=== PATIENT | male | born 1955 | race Caucasian/White ===

== ENCOUNTER → 2017-10-17 | Outpatient (CLI) | payer OTHER ==
[~2017-10-17] MED LIST: ADVIN25/60 INH; ALBUAER19 INH; ASPECOTC PO; CARB1CAP10 PO; CELE100C PO; CLC100X PO; CYM/30 PO; DSY50 PO; DULO60CA44 PO; LORA-741 PO; POLY335019 PO; SIMV80TA2 PO; SNQ25 PO; TRAM-10 PO
[2017-10-17 13:19] LABS: HEMATOCRIT 44.8 % (42-52); HEMOGLOBIN 15.4 g/dL (14.0-18.0); MEAN CELL VOLUME 92.9 fL (80-100); MEAN CORPUSCULAR HGB CONC 34.4 g/dl (32-36); MEAN PLATELET VOLUME 8.8 fL (7.4-10.4); PLATELET COUNT 306 K/uL (130-400); RED CELL DISTRIBUTION WIDTH CV 13.2 % (11.5-14.5); RED CELL DISTRIBUTION WIDTH SD 45.1 fL (36.4-46.3)
[2017-10-17 13:57] LABS: ALBUMIN 4.1 gm/dl (3.4-5.0); ALT/SGPT 27 U/L (12-78); BLOOD UREA NITROGEN 15 mg/dl (7-18); CALCIUM 9.1 mg/dl (8.5-10.1); CARBON DIOXIDE 29 mmol/L (21-32); CHOLESTEROL 160 mg/dl (0-200); CREATININE 0.94 mg/dl (0.60-1.40); GLUCOSE 96 mg/dl (70-99); POTASSIUM 4.3 mmol/L (3.5-5.1); SODIUM 135 mmol/L (136-145)
[2017-10-17 14:00] LABS: ALKALINE PHOSPHATASE 93 U/L (45-117); AST/SGOT 20 U/L (15-37); LDL CHOLESTEROL CALCULATED 62 mg/dl; TOTAL PROTEIN 8.1 gm/dl (6.4-8.2)
== END | disposition home or self-care (01) ==
LOC: C.LAB1850 12:33
PROVIDERS: ATTEND Internal Medicine
DX: E78.5 Hyperlipidemia, unspecified (principal); R73.01 Impaired fasting glucose; G40.909 Epilepsy, unspecified, not intractable, without status epilepticus

== ENCOUNTER 2018-09-18 09:46 | Inpatient (IN) ==
[2018-09-18] MEDS ORDERED: SODIUM CHLORIDE 0.9% 1000ML 1,000 ML IV SCH (10:15)
--- NOTE | 2018-09-18 11:05 | CT Scan Report ---
CT SCAN OF THE BRAIN WITHOUT IV CONTRAST CLINICAL HISTORY: Change in mental status. COMPARISON STUDY: No priors. TECHNIQUE: Unenhanced axial CT scan of the brain is performed from the vertex to the skull base. A do se lowering technique was utilized adhering to the principles of ALARA. CT DOSE: 788.63 mGycm FINDINGS: Brain parenchyma: There is encephalomalacia throughout the left MCA territory consistent with a remot e infarct. There is associated ex vacuo dilatation of the left lateral ventricle. Wallerian degenerat ion is noted in the left aspect of the chelsey. There are age-related involutional changes noting mild subcortical and periventricular microangiopathic change. There is no hemorrhage, mass effect, or evid ence of acute territorial ischemia by CT criteria. James-white matter differentiation is preserved. No extra-axial fluid collection is seen. Ventricles, sulci, cisterns: Prominent secondary to involutional change. Intracranial vasculature: There is atherosclerotic calcification of the cavernous carotid and vertebr al arteries. Calvarium: Unremarkable. Sinuses and mastoids: The visualized paranasal sinuses are clear. The mastoid air cells are well pneu matized. Orbits: The bony orbits are grossly intact. IMPRESSION: 1. There is no hemorrhage, mass effect, or evidence of acute territorial ischemia by CT criteria. 2. Remote left MCA territory infarct. Electronically signed by: Nick Barillas M.D. 09/18/2018 11:04 AM
--- NOTE | 2018-09-18 11:15 | XRay Report ---
XR chest 1V portable CLINICAL HISTORY: weakness COMPARISON STUDY: Chest radiograph January 09, 2016. FINDINGS: Old right-sided rib fractures are noted. There is no pneumothorax or pleural effusion. Ther e is no evidence for pulmonary edema. Cardiomediastinal silhouette is stable. No consolidation is samson ntified. IMPRESSION: No acute cardiopulmonary findings. Electronically signed by: Juan Mcdonough M.D. 09/18/2018 11:14 AM
--- NOTE | 2018-09-18 11:16 | XRay Report ---
XR pelvis 1-2V routine CLINICAL HISTORY: ams pain COMPARISON: 09/01/2018 DISCUSSION: Total right hip arthroplasty in good position. Moderate degenerative change left hip. No well-defined acute abnormality. There is no evidence for soft tissue swelling. IMPRESSION: Postoperative and degenerative change. No acute process. The above report was generated using voice recognition software. It may contain grammatical, syntax or spelling errors. Electronically signed by: Shan Yadav M.D. 09/18/2018 11:15 AM
[2018-09-18 11:18] LABS: Basophils # (auto) 0.03 K/uL (0-0.2); Basophils % (auto) 0.2 %; Eosinophils # (auto) 0.14 K/uL (0-0.5); Eosinophils % (auto) 1.1 %; Hematocrit (blood only) 37.6 % (42-52); Hemoglobin 12.6 g/dL (14.0-18.0); Immature Granulocytes # (auto) 0.03 K/uL (0.00-0.02); Immature Granulocytes % (auto) 0.2 %; Lymphocytes # (auto) 1.24 K/uL (1.2-3.4); Lymphocytes % (auto) 10.2 %; Mean Corpuscular Hgb Conc 33.5 g/dL (32-36); Mean Corpuscular Volume 96.4 fL (80-100); Mean Platelet Volume 8.6 fL (7.4-10.4); Monocytes # (auto) 0.95 K/uL (0.11-0.59); Monocytes % (auto) 7.8 %; Neutrophils % (auto) 80.5 %; Platelet Count 356 K/uL (130-400); RDW Coefficient of Variation 12.9 % (11.5-14.5); RDW Standard Deviation 44.9 fL (36.4-46.3); White Blood Count 12.19 K/uL (4.8-10.8)
[2018-09-18 11:27] LABS: INR 1.1 (0.9-1.1); Prothrombin Time 10.8 Seconds (9.0-12.0)
[2018-09-18 11:39] LABS: Alanine Aminotransferase 23 U/L (12-78); Albumin Level 3.1 gm/dl (3.4-5.0); Aspartate Aminotransferase 23 U/L (15-37); BUN Creatinine Ratio 23.2 (10-20); Blood Urea Nitrogen 18 mg/dl (7-18); Calcium 8.8 mg/dl (8.5-10.1); Carbon Dioxide 31 mmol/L (21-32); Chloride 106 mmol/L (98-107); Est GFR (African American) 110.4; Est GFR (Non-African American) 95.2; Glucose 103 mg/dl (70-99); Magnesium 1.8 mg/dl (1.8-2.4); Potassium 4.3 mmol/L (3.5-5.1); Sodium 139 mmol/L (136-145)
[2018-09-18 11:40] LABS: Appearance Urine Clear (Clear); Bilirubin Urine Negative (Negative); Blood Urine Negative (Negative); Color Urine Dark Yellow; Glucose Urine UA Negative (Negative); Ketones Urine Trace (Negative); Leukocyte Esterase Urine Negative (Negative); Nitrite Urine Negative (Negative); Protein Urine Negative (Negative); Specific Gravity Urine 1.024 (1.000-1.030); Urobilinogen Urine Negative (Negative); pH Urine 6.5 (4.5-7.5)
[2018-09-18 11:50] LABS: Albumin Globulin Ratio 0.7 (0.9-2); Alkaline Phosphatase 68 U/L (45-117); Bilirubin,Total 0.4 mg/dl (0.2-1); Globulin 4.3 gm/dl (2.5-4.0); Total Protein 7.4 gm/dl (6.4-8.2); Troponin I 0.021 ng/ml (0-0.045)
[2018-09-18] MEDS ORDERED: OPTIRAY 320 125ml IV PRN (12:09)
--- NOTE | 2018-09-18 13:52 | History & Physical Report ---
Date of Service September 18, 2018 Assessment & Plan (1) Altered mental status: CT as noted, concern for another CVA CBC, PRP WNL TSH WNL Trop neg, EKG WNL CXR neg for PNA UA neg Does have many different types of medications on hand and recent depression, cannot fully r/o intentional overdose Last known well was 11:30p 09/17 Monitor on tele Unable to obtain further imaging due to pt's current state Will hold trazodone, tramodol, baclofen (PRN), ativan Will hold celebrex given it's potential role in CVA Start plavix Neuro c/s PT/OT pending ST pending ADAT if dyphagia screen is WNL (2) History of CVA (cerebrovascular accident): R sided deficits at baseline (3) Depression: continue home meds (4) COPD (chronic obstructive pulmonary disease): continue home meds (5) Anxiety: continue home meds other than PRN (6) Seizure: continue home tegretol dosing to prevent seizures (7) Tobacco use disorder: Nicotine patch PRN (8) DVT prophylaxis: SCDs for now Will need code status revisited once sisters are able to discuss History of Present Illness Primary Care Provider: Narinder Gonzalez MD 63 y/o M who was brought to the ED by his family after being found with AMS at home. 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 This has left him with no use of his R UE and limited R LE use with some aphasia. Pt can understand conversation and participate in conversation, but does have limited vocabulary. He is A&O x3 at baseline. Pt also had an [place] in 1987 as the result of cocaine use. Pt lives alone in an apartment in [place], with a "medical helper" who looks in on him regularly. He used to live with his mother, but she 5-6 years ago. He has two sisters who live in [place] who have tried to convince him to move to [place] for quite some time. They are in good contact with him and visit him here regularly. Pt was recently at [facility] x10 days for ambulation issues related to his R LE. He was d/c'd on 09/10 to home with N. Pt's sister and her had a planned visit for today. She states that she spoke with pt around 11:30p last night via phone regarding this visit and pt seemed to be in his usual state of health. He had no health concerns or other commentary that made her think anything was out of the ordinary. She does note that he mentioned that his depression was worse. Sister and her arrived around 8:30a today to find pt quite "groggy" and not as interactive as he usually would be. He does stay up late and so they thought he was just tired and would "come out of it". He was not moving as he usually would. His speech and communication was not like it usually would be. She states that there were many pills all over his table, but she states that pt does "play with them". "He is a former addict. I think they are just drawn to pills." When his mentation and interactions did not improve, they brought pt to the ED for further evaluation. 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 She states he goes through about 20 cigarettes a day, but only takes a few puffs from each and puts them out. As far as she is aware, pt has no current drug use. She states that all of the stopped after his CVA 22 yrs ago because he could not communicate effectively to obtain drugs or drive to meet dealers. Pt has several ulcerations from postural issues and his R leg brace. She states that his diet is "terrible" and that all he will eat regularly is jelly beans. She states that he has no known swallowing issues after his initial CVA and can eat and drink what he likes. He does wear an upper denture plate, but not a lower. Unable to obtain ROS given pt's current mentation. Sister states that she and their other sister are joint POA. She knows that if pt would not prolonged mechanical life support, feeding tubes, etc. She does think that pt would prefer to be DNR/DNI at baseline, however she would like to discuss with her sister before making a final determination on this status. She does state that if pt does not recover meaningful activity from this event, that he would want to be a DNR/DNI at that time. Sisters are currently in the process of arranging for pt to move to an AL facility in [place]. She states that pt has a lot of depression and really e njoyed his time at [facility] due to the interaction with others, activities, etc. She states that they have tried many times to convince him of this, but he had preferred to live alone after the passing of their mother. After being at [facility], she thinks he realized that he does want a more social environment. CT head was able to be completed in the ED, however pt was unable to cooperate for CTA. Family states that pt will go from periods of moving his L UE and LE and looking around the room with some eye contact to periods of lying still and not appearing to respond to them while they are in the ED. Allergies Allergy/AdvReac Type Severity Reaction Status Date / Time No Known Allergies Allergy Unknown Verified 09/18/18 11:56 Home Medications Home Medications Medication Instructions Recorded Confirmed Type albuterol sulfate [Ventolin HFA] 1 - 2 puff INHALATION Q4 PRN 08/24/18 09/18/18 History aspirin 325 mg PO DAILY 08/24/18 09/18/18 History celecoxib 100 mg PO DAILY 08/24/18 09/18/18 History docusate sodium 100 mg PO BID PRN 08/24/18 09/18/18 History doxepin 25 mg PO HS 08/24/18 09/18/18 History duloxetine 30 mg PO QAM 08/24/18 09/18/18 History duloxetine 60 mg PO QPM 08/24/18 09/18/18 History fluticasone-salmeterol [Advair 1 inh INHALATION BID 08/24/18 09/18/18 History Diskus] linaclotide [Linzess] 145 mg PO QAM 08/24/18 09/18/18 History lorazepam 0.5 - 1 mg PO DAILY PRN 08/24/18 09/18/18 History simvastatin 80 mg PO DAILY 08/24/18 09/18/18 History tramadol 50 mg PO Q6 PRN 08/24/18 09/18/18 History trazodone 50 - 100 mg PO HS PRN 08/24/18 09/18/18 History baclofen 10 mg PO TID PRN 09/18/18 09/18/18 History carbamazepine [Tegretol XR] 100 mg PO BID 09/18/18 09/18/18 History potassium chloride 10 meq PO BID 09/18/18 09/18/18 History Past Med/Surg History Medical History TIA (transient ischemic attack) (Chronic) Carbamazepine toxicity (Acute) Dizziness (Acute) History of CVA (cerebrovascular accident) (Acute) Leg pain (Acute) Medication refill (Acute) Myocarditis (Acute 09/18/11) Acute pain of right knee (Inactive) Dislocation, hip closed (Inactive) Surgical History History of hip replacement Social History Preferred Language: Romansh Communication Ability: Impaired 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 Beliefs That Will Affect Care: None marital status: Single Current Living Situation: Alone Current Living Situation Comment: independent apartment at [address], was in [place], [place] 8 days ago current occupational status: disabled Other Information That Helps Us Care for You: No Feels Safe at Home: Yes Safety Concerns: Feels Safe At This Time Smoking Status: Current every day smoker Hx Alcohol Use: Yes Hx Substance Use: Yes (former heroine and cocaine user) Review of Systems Pertinent positives and negatives reviewed in HPI--all others negative Physical Exam Vital Signs (Past 24 Hours): Last Vital Signs Pulse 68 09/18/18 09:45 Resp 18 09/18/18 09:45 BP 130/65 09/18/18 09:45 Pulse Ox 95 09/18/18 09:45 Constitutional: + cachectic and + frail appearing Eyes: + anicteric sclerae R lid lag, family states likely not new but are not certain Neck: normal visual inspection and trachea midline Respiratory: normal respiratory effort, lungs clear to auscultation Cardiovascular: Rate/Rhythm: regular rate and regular rhythm Gastrointestinal (Abdomen): Inspection/Auscultation: abdomen not distended Percussion/Palpation: abdomen soft; abdomen nontender Musculoskeletal: Head/Neck/Chest: normocephalic and head atraumatic negative for edema, peripheral pulses intact R leg brace intact over most of LE L knee with new abrasion Skin: no rashes, warm and dry Neurologic: No speech while I was in room, did communicate that he wanted head of bed elevated at one point Moving L UE and LE around with apparent good ROM at times, other times lying in bed and staring straight ahead with R lid lag Eyes not making contact Psychiatric: Alerted to person at one point Did take deep breaths when instructed, but no other commands followed Did indicate that he wanted HOB elevated and that it was elevated to a position he wanted Results & Data Diagnostic Findings CT head: 1. There is no hemorrhage, mass effect, or evidence of acute territorial ischemia by CT criteria. 2. Remote left MCA territory infarct. CXR: neg for acute Pelvic XR: neg for acute ECG Rhythm: normal sinus Code Status & VTE Plan Code Status Full code for now. Sister states that she and their other sister are joint POA. She knows that if pt would not prolonged mechanical life support, feeding tubes, etc. She does think that pt would prefer to be DNR/DNI at baseline, however she would like to discuss with her sister before making a final determination on this status. She does state that if pt does not recover meaningful activity from this event, that he would want to be a DNR/DNI at that time. VTE Prophylaxis Plan VTE Prophylaxis will be ordered: Yes (1) Altered mental status Altered mental status type: unspecified Qualified Code(s): R41.82 - Altered mental status, unspecified
[2018-09-18] MEDS ORDERED: PHARMACIST DISCHARGE MED REC CONSULT PRN (14:42)
[2018-09-18] MEDS ORDERED: ONDANSETRON INJ 2 MG/ML 2 ML VIAL IV PRN (14:42)
[2018-09-18] MEDS: SODIUM CHLORIDE 0.9% 1000ML 1,000 ML IV SCH (15:36)
[2018-09-18 15:41] LABS: Estimated Average Glucose 128 mg/dl; Hemoglobin A1C 6.1 % (4.5-5.6)
--- NOTE | 2018-09-18 16:38 | Emergency Department Note ---
Entered by Jaimie Leahy acting as a scribe for León Park DO History of Present Illness General Chief complaint: Altered Mental Status Stated complaint: ams Time Seen by Provider: 09/18/18 09:55 Source: old records reviewed and other (nursing staff) Limitations: altered mental status History of Present Illness Provider complaint: altered mental status Onset (ago): hour(s) (today) Location: head Quality: + other (altered mental status ) The patient is a 63 year old male who presents to the Emergency Room with an altered mental status today. Limited HPI secondary to AMS. Per family, the patient was discharged from [facility] 1 week ago and has been functioning fine. His family states that the patient had a stroke in 1995. Per family, the patient can normally communicate "yes" and "no" and can communicate with body signals. His family states that she talked to the patient at 2330 last night and states that the patient was normal at this time. Per family, the patient takes Tramadol, Baclofen, Celebrex, duloxetine, and Trazadone. Per nursing staff, the patient has a history of a prior stroke. Nursing staff s tates that the patient's BSG was 77. Review of EMR shows that the patient has had 3 visits this month- 1 for a hip dislocation, and 2 for foot pain and falls. Home Medications Home Medications Medication Instructions Recorded Confirmed Type albuterol sulfate [Ventolin HFA] 1 - 2 puff INHALATION Q4 PRN 08/24/18 09/18/18 History aspirin 325 mg PO DAILY 08/24/18 09/18/18 History celecoxib 100 mg PO DAILY 08/24/18 09/18/18 History docusate sodium 100 mg PO BID PRN 08/24/18 09/18/18 History doxepin 25 mg PO HS 08/24/18 09/18/18 History duloxetine 30 mg PO QAM 08/24/18 09/18/18 History duloxetine 60 mg PO QPM 08/24/18 09/18/18 History fluticasone-salmeterol [Advair 1 inh INHALATION BID 08/24/18 09/18/18 History Diskus] linaclotide [Linzess] 145 mg PO QAM 08/24/18 09/18/18 History lorazepam 0.5 - 1 mg PO DAILY PRN 08/24/18 09/18/18 History simvastatin 80 mg PO DAILY 08/24/18 09/18/18 History tramadol 50 mg PO Q6 PRN 08/24/18 09/18/18 History trazodone 50 - 100 mg PO HS PRN 08/24/18 09/18/18 History baclofen 10 mg PO TID PRN 09/18/18 09/18/18 History carbamazepine [Tegretol XR] 100 mg PO BID 09/18/18 09/18/18 History potassium chloride 10 meq PO BID 09/18/18 09/18/18 History Allergies Allergy/AdvReac Type Severity Reaction Status Date / Time No Known Allergies Allergy Unknown Verified 09/18/18 11:56 Past Med/Surg History Medical History TIA (transient ischemic attack) (Chronic) Carbamazepine toxicity (Acute) Dizziness (Acute) History of CVA (cerebrovascular accident) (Acute) Leg pain (Acute) Medication refill (Acute) Myocarditis (Acute 09/18/11) Acute pain of right knee (Inactive) Dislocation, hip closed (Inactive) Surgical History History of hip replacement Social History Preferred Language: Italian Communication Ability: Impaired Medical Research Assistant Required: No Beliefs That Will Affect Care: None marital status: Single Current Living Situation: Alone Current Living Situation Comment: independent apartment at [facility], was in [place], [place] 8 days ago current occupational status: disabled Other Information That Helps Us Care for You: No Feels Safe at Home: Yes Safety Concerns: Feels Safe At This Time Smoking Status: Current every day smoker Hx Alcohol Use: Yes 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 Physical Exam Vital Signs Vital Signs - 24 hr 09/18/18 09:45 09/18/18 09:55 09/18/18 10:00 Temperature Temperature Source Sepsis Recent Fever Within 48 Hours No Sepsis Action Taken by Nursing No Action Required Pulse Rate 68 64 67 Pulse Rate [Left Radial] Pulse Rate from SpO2 Sensor 63 65 Pulse Rhythm [Left Radial] Pulse Strength [Left Radial] Respiratory Rate 18 19 13 Respiratory Effort / Characteristics Non-Labored Respiratory Depth Normal Blood Pressure 130/65 130/65 Blood Pressure [Right Arm] Blood Pressure Mean 86 86 Blood Pressure Mean [Right Arm] Blood Pressure Position [Right Arm] Pulse Oximetry 95 95 97 Oxygen Delivery Method Room Air 09/18/18 10:10 09/18/18 10:20 09/18/18 10:30 Temperature Temperature Source Sepsis Recent Fever Within 48 Hours Sepsis Action Taken by Nursing Pulse Rate 64 65 Pulse Rate [Left Radial] Pulse Rate from SpO2 Sensor 63 66 65 Pulse Rhythm [Left Radial] Pulse Strength [Left Radial] Respiratory Rate 11 L 17 Respiratory Effort / Characteristics Respiratory Depth Blood Pressure Blood Pressure [Right Arm] Blood Pressure Mean Blood Pressure Mean [Right Arm] Blood Pressure Position [Right Arm] Pulse Oximetry 98 97 85 L Oxygen Delivery Method 09/18/18 10:40 09/18/18 10:51 09/18/18 10:53 Temperature Temperature Source Sepsis Recent Fever Within 48 Hours Sepsis Action Taken by Nursing Pulse Rate 62 61 61 Pulse Rate [Left Radial] Pulse Rate from SpO2 Sensor Pulse Rhythm [Left Radial] Pulse Strength [Left Radial] Respiratory Rate 13 13 16 Respiratory Effort / Characteristics Respiratory Depth Blood Pressure 132/87 Blood Pressure [Right Arm] Blood Pressure Mean 102 Blood Pressure Mean [Right Arm] Blood Pressure Position [Right Arm] Pulse Oximetry Oxygen Delivery Method 09/18/18 11:00 09/18/18 11:01 09/18/18 11:10 Temperature Temperature Source Sepsis Recent Fever Within 48 Hours Sepsis Action Taken by Nursing Pulse Rate Pulse Rate [Left Radial] Pulse Rate from SpO2 Sensor 62 62 62 Pulse Rhythm [Left Radial] Pulse Strength [Left Radial] Respiratory Rate Respiratory Effort / Characteristics Respiratory Depth Blood Pressure 153/65 H Blood Pressure [Right Arm] Blood Pressure Mean 94 Blood Pressure Mean [Right Arm] Blood Pressure Position [Right Arm] Pulse Oximetry 97 98 Oxygen Delivery Method 09/18/18 11:20 09/18/18 11:30 09/18/18 11:40 Temperature Temperature Source Sepsis Recent Fever Within 48 Hours Sepsis Action Taken by Nursing Pulse Rate 62 60 Pulse Rate [Left Radial] Pulse Rate from SpO2 Sensor 58 L 61 60 Pulse Rhythm [Left Radial] Pulse Strength [Left Radial] Respiratory Rate 11 L 11 L Respiratory Effort / Characteristics Respiratory Depth Blood Pressure 127/62 Blood Pressure [Right Arm] Blood Pressure Mean 83 Blood Pressure Mean [Right Arm] Blood Pressure Position [Right Arm] Pulse Oximetry 96 98 97 Oxygen Delivery Method 09/18/18 11:50 09/18/18 14:43 Temperature 36.6 C Temperature Source Oral Sepsis Recent Fever Within 48 Hours Sepsis Action Taken by Nursing Pulse Rate 60 Pulse Rate [Left Radial] 89 Pulse Rate from SpO2 Sensor 61 Pulse Rhythm [Left Radial] Regular Pulse Strength [Left Radial] Normal Respiratory Rate 10 L 16 Respiratory Effort / Characteristics Non-Labored Spontaneous Respiratory Depth Normal Blood Pressure Blood Pressure [Right Arm] 150/73 H Blood Pressure Mean Blood Pressure Mean [Right Arm] 98 Blood Pressure Position [Right Arm] Lying Pulse Oximetry 96 99 Oxygen Delivery Method Room Air GENERAL: Sitting up in bed, spontaneously moving upper extremities and left upper extremity, not responding, non-toxic. HEAD: Normpcephalic, atraumatic. EYE EXAM: normal conjunctiva. PERRL and EOM's grossly intact. OROPHARYNX: no exudate, no erythema, lips, buccal mucosa, and tongue normal and mucous membranes are moist NECK: supple, no nuchal rigidity, no adenopathy, non-tender LUNGS: Rhonchi bilaterally. Normal chest wall mechanics HEART: no murmurs, S1 normal and S2 normal ABDOMEN: abdomen soft, non-tender, normo-active bowel, sounds, no masses, no rebound or guarding. PELVIS: Stable compression anteriorly and posteriorly. BACK: Back is symmetrical on inspection and there is no deformity, no midline tenderness, no CVA tenderness. SKIN: Sores on the medial aspect of the right knee and lateral aspect of the right rosenbaum. UPPER EXTREMITIES: upper extremities are grossly normal. LOWER EXTREMITIES: No pitting edema. NEURO EXAM: Awake, nonverbal. Not following commands. Moves the left upper extremity and left lower extremity spontaneously. Right arm moving minimally, appears contracted against chest. Minimal movement to right lower extremity. Course ED COURSE: Vital signs were reviewed and were normal. The patients medical record was reviewed The above diagnostic studies were performed and reviewed. ED treatments and interventions as stated above. 0956: The patient was evaluated in room A12A. A complete history and physical examination was performed. 1111: I updated the patient's family. 1143: I updated the patient's family who verbalized agreement and understanding of the treatment plan. 1222: I discussed the patient's case with Dr. Duane Barrera who will evaluate the patient for further management. Consultations Consultation #1: Dr. Duane Barrera Time: 12:22 Administered Medications Sodium Chloride (Nss 1000ml) 1,000 mls @ 50 mls/hr IV .Q20H EDWARD Stop: 10/18/18 15:04 Last Admin: 09/18/18 15:36 Dose: 50 mls/hr Documented by: [id number] Ioversol (Optiray 320 125ml) 120 ml IV ONCE PRN PRN Reason: Interaction Checking Stop: 09/22/18 12:08 Last Admin: 09/18/18 12:10 Dose: 120 ml Documented by: [id number] Miscellaneous (Order Awaiting Action) 1 ea N/A QS EDWARD Stop: 10/18/18 15:59 Last Admin: 09/18/18 15:33 Dose: Not Given Documented by: [id number] Discontinued Medications Sodium Chloride (Nss 1000ml) 1,000 mls @ 999 mls/hr IV .Q1H1M EDWARD Stop: 09/18/18 11:15 Last Infusion: 09/18/18 13:53 Dose: 0 mls/hr Documented by: [id number] Admin: 09/18/18 12:20 Dose: 999 mls/hr Documented by: [id number] Medical Decision Making Differential Diagnosis Differential diagnoses includes but is not limited to toxic, metabolic, infectious, traumatic, cardiac, neurologic, hematologic, psychiatric and inflammatory etiologies. Medical Records Attestation: I reviewed the patient's medical records. Home Medications Current Medication List: was personally reviewed by me Laboratory Data Attestation: I reviewed the patient's lab results. Result diagrams: 09/18/18 11:06 09/18/18 11:06 Lab Results 09/18/18 09/18/18 09/18/18 Range/Units 11:06 11:06 11:06 WBC 12.19 H (4.8-10.8) K/uL RBC 3.90 L (4.7-6.1) M/uL Hgb 12.6 L (14.0-18.0) g/dL Hct 37.6 L (42-52) % MCV 96.4 (80-100) fL MCH 32.3 (25-34) pg MCHC 33.5 (32-36) g/dL RDW Std Deviation 44.9 (36.4-46.3) fL RDW Coeff of Wesley 12.9 (11.5-14.5) % Plt Count 356 (130-400) K/uL MPV 8.6 (7.4-10.4) fL Immature Gran % (Auto) 0.2 % Neut % (Auto) 80.5 % Lymph % (Auto) 10.2 % Cata[place] % (Auto) 7.8 % Eos % (Auto) 1.1 % Baso % (Auto) 0.2 % Immature Gran # (Auto) 0.03 H (0.00-0.02) K/uL Neut # (Auto) 9.80 H (1.4-6.5) K/uL Lymph # (Auto) 1.24 (1.2-3.4) K/uL Cataño # (Auto) 0.95 H (0.11-0.59) K/uL Eos # (Auto) 0.14 (0-0.5) K/uL Baso # (Auto) 0.03 (0-0.2) K/uL PT 10.8 (9.0-12.0) Seconds INR 1.1 (0.9-1.1) Sodium 139 (136-145) mmol/L Potassium 4.3 (3.5-5.1) mmol/L Chloride 106 (98-107) mmol/L Carbon Dioxide 31 (21-32) mmol/L Anion Gap 2.0 L (3-11) BUN 18 (7-18) mg/dl Creatinine 0.77 (0.6-1.4) mg/dl Est Cr Clr Drug Dosing Not Reportable Est GFR ( Amer) 110.4 Est GFR (Non-Af Amer) 95.2 BUN/Creatinine Ratio 23.2 H (10-20) Glucose 103 H (70-99) mg/dl Estimat Average Glucose mg/dl Hemoglobin A1c (4.5-5.6) % Lactate (0.4-2.0) mmol/L Calcium 8.8 (8.5-10.1) mg/dl Magnesium 1.8 (1.8-2.4) mg/dl Total Bilirubin 0.4 (0.2-1) mg/dl AST 23 (15-37) U/L ALT 23 (12-78) U/L Alkaline Phosphatase 68 (45-117) U/L Troponin I 0.021 (0-0.045) ng/ml Total Protein 7.4 (6.4-8.2) gm/dl Albumin 3.1 L (3.4-5.0) gm/dl Globulin 4.3 H (2.5-4.0) gm/dl Albumin/Globulin Ratio 0.7 L (0.9-2) TSH 0.671 (0.300-4.500) uIu/ml Urine Color Urine Appearance (Clear) Urine pH (4.5-7.5) Ur Specific [place] (1.000-1.030) Urine Protein (Negative) Urine Glucose (UA) (Negative) Urine Ketones (Negative) Urine Blood (Negative) Urine Nitrite (Negative) Urine Bilirubin (Negative) Urine Urobilinogen (Negative) Ur Leukocyte Esterase (Negative) 09/18/18 09/18/18 09/18/18 Range/Units 11:06 11:06 11:25 WBC (4.8-10.8) K/uL RBC (4.7-6.1) M/uL Hgb (14.0-18.0) g/dL Hct (42-52) % MCV (80-100) fL MCH (25-34) pg MCHC (32-36) g/dL RDW Std Deviation (36.4-46.3) fL RDW Coeff of Wesley (11.5-14.5) % Plt Count (130-400) K/uL MPV (7.4-10.4) fL Immature Gran % (Auto) % Neut % (Auto) % Lymph % (Auto) % [place] % (Auto) % Eos % (Auto) % Baso % (Auto) % Immature Gran # (Auto) (0.00-0.02) K/uL Neut # (Auto) (1.4-6.5) K/uL Lymph # (Auto) (1.2-3.4) K/uL [place]ata[place] # (Auto) (0.11-0.59) K/uL Eos # (Auto) (0-0.5) K/uL Baso # (Auto) (0-0.2) K/uL PT (9.0-12.0) Seconds INR (0.9-1.1) Sodium (136-145) mmol/L Potassium (3.5-5.1) mmol/L Chloride (98-107) mmol/L Carbon Dioxide (21-32) mmol/L Anion Gap (3-11) BUN (7-18) mg/dl Creatinine (0.6-1.4) mg/dl Est Cr Clr Drug Dosing Est GFR ( Amer) Est GFR (Non-Af Amer) BUN/Creatinine Ratio (10-20) Glucose (70-99) mg/dl Estimat Average Glucose 128 mg/dl Hemoglobin A1c 6.1 H (4.5-5.6) % Lactate 0.7 (0.4-2.0) mmol/L Calcium (8.5-10.1) mg/dl Magnesium (1.8-2.4) mg/dl Total Bilirubin (0.2-1) mg/dl AST (15-37) U/L ALT (12-78) U/L Alkaline Phosphatase (45-117) U/L Troponin I (0-0.045) ng/ml Total Protein (6.4-8.2) gm/dl Albumin (3.4-5.0) gm/dl Globulin (2.5-4.0) gm/dl Albumin/Globulin Ratio (0.9-2) TSH (0.300-4.500) uIu/ml Urine Color Dark Yellow Urine Appearance Clear (Clear) Urine pH 6.5 (4.5-7.5) Ur Specific [place] 1.024 (1.000-1.030) Urine Protein Negative (Negative) Urine Glucose (UA) Negative (Negative) Urine Ketones Trace H (Negative) Urine Blood Negative (Negative) Urine Nitrite Negative (Negative) Urine Bilirubin Negative (Negative) Urine Urobilinogen Negative (Negative) Ur Leukocyte Esterase Negative (Negative) Imaging Data Radiologist's Impression: Radiology results as stated below per my review and the radiologist's interpretation: XR pelvis 1-2V routine CLINICAL HISTORY: ams pain COMPARISON: 09/01/2018 DISCUSSION: Total right hip arthroplasty in good position. Moderate degenerative change left hip. No well-defined acute abnormality. There is no evidence for soft tissue swelling. IMPRESSION: Postoperative and degenerative change. No acute process. The above report was generated using voice recognition software. It may contain grammatical, syntax or spelling errors. Electronically signed by: Shan Yadav M.D. 09/18/2018 11:[address] SCAN OF THE BRAIN WITHOUT IV CONTRAST CLINICAL HISTORY: Change in mental status. COMPARISON STUDY: No priors. TECHNIQUE: Unenhanced axial CT scan of the brain is performed from the vertex to the skull base. A dose lowering technique was utilized adhering to the principles of ALARA. CT DOSE: 788.63 mGycm FINDINGS: Brain parenchyma: There is encephalomalacia throughout the left MCA territory consistent with a remote infarct. There is associated ex vacuo dilatation of the left lateral ventricle. Wallerian degeneration is noted in the left aspect of the chelsey. There are age-related involutional changes noting mild subcortical and periventricular microangiopathic change. There is no hemorrhage, mass effect, or evidence of acute territorial ischemia by CT criteria. James-white matter differentiation is preserved. No extra-axial fluid collection is seen. Ventricles, sulci, cisterns: Prominent secondary to involutional change. Intracranial vasculature: There is atherosclerotic calcification of the cavernous carotid and vertebral arteries. Calvarium: Unremarkable. Sinuses and mastoids: The visualized paranasal sinuses are clear. The mastoid air cells are well pneumatized. Orbits: The bony orbits are grossly intact. IMPRESSION: 1. There is no hemorrhage, mass effect, or evidence of acute territorial ischemia by CT criteria. 2. Remote left MCA territory infarct. Electronically signed by: Nick Barillas M.D. 09/18/2018 11:04 AM XR chest 1V portable CLINICAL HISTORY: weakness COMPARISON STUDY: Chest radiograph January 09, 2016. FINDINGS: Old right-sided rib fractures are noted. There is no pneumothorax or pleural effusion. There is no evidence for pulmonary edema. Cardiomediastinal silhouette is stable. No consolidation is identified. IMPRESSION: No acute cardiopulmonary findings. Electronically signed by: Juan Mcdonough M.D. 09/18/2018 11:14 AM ECG Data Attestation: I personally reviewed and interpreted this ECG as follows: Indication: altered mental status Rate (beats per minute): 66 Rhythm: sinus rhythm Findings: + other (normal axis); no PVC Blood Pressure Blood Pressure Findings: Normal blood pressure MDM Narrative Patient is a 63-year-old male who presents to the ER for altered mental status brought in by EMS. Family found him at home altered. Last known well was last night around 11 PM. BSG per EMS was 77. Labs were obtained and showed no significant leukocytosis or anemia. INR was unremarkable. BMP along with LFTs and troponin was normal. TSH was unremarkable. UA was negative. Chest x-ray was negative. CT shows an old infarct. Patient's family was updated at bedside. Attempted to obtain a CTA but was unsuccessful as patient was rolling around. Did not feel that sedation would be beneficial at this point. He is a DNR/DNI. This could lose his airway. Family was updated bedside and patient was admitted for further workup. Impression & Plan Altered mental status Discharge Plan Visit Data *Final* Discharge Date/Time: 09/18/18 14:07 Chief Complaint: Altered Mental Status Stated Complaint: ams ED Provider: León Park Discharge Problem: Altered mental status Patient Disposition: Admitted As Inpatient Discharge Instructions Interventions: ED Discharge Assessment Last Done: 09/18/18 14:07 Discharge Problem: Altered mental status Qualifiers: Altered mental status type: unspecified Qualified Code(s): R41.82 - Altered mental status, unspecified The scribe's documentation has been prepared under my direction and personally reviewed by me in its entirety. I confirm that the note above accurately reflects all work, treatment, procedures, and medical decision making performed by me.
[2018-09-18] MEDS: DULOXETINE HCL 60 MG CAP PO SCH (21:04)
[2018-09-18] MEDS: POTASSIUM CHLORIDE 10 MEQ TABCR PO SCH (21:04)
[2018-09-18] MEDS: CARBAMAZEPINE 100 MG TABCR PO SCH (21:05)
[2018-09-18] MEDS: DOXEPIN HCL 25 MG CAPSULE PO SCH (21:05)
[2018-09-18] MEDS: FLUTICASONE/SALMETEROL 250/50 (ADVAIR) 14 PUFF/1 INHALER INH SCH (21:06)
[2018-09-19] MEDS: SODIUM CHLORIDE 0.9% 1000ML 1,000 ML IV SCH (05:39)
[2018-09-19 08:39] LABS: BUN Creatinine Ratio 17.8 (10-20); Calcium 8.5 mg/dl (8.5-10.1); Creatinine Clr Calc Pharmacy 66.9 ml/min; Est GFR (African American) 108.7; Est GFR (Non-African American) 93.7; Magnesium 1.7 mg/dl (1.8-2.4); Potassium 4.3 mmol/L (3.5-5.1)
[2018-09-19 08:53] LABS: Hemoglobin 13.6 g/dL (14.0-18.0); Mean Corpuscular Hgb Conc 33.2 g/dL (32-36); Mean Corpuscular Volume 95.8 fL (80-100); Mean Platelet Volume 9.2 fL (7.4-10.4); Platelet Count 334 K/uL (130-400); RDW Coefficient of Variation 12.9 % (11.5-14.5); RDW Standard Deviation 44.2 fL (36.4-46.3); Red Blood Count 4.28 M/uL (4.7-6.1); White Blood Count 8.35 K/uL (4.8-10.8)
[2018-09-19] MEDS: FLUTICASONE/SALMETEROL 250/50 (ADVAIR) 14 PUFF/1 INHALER INH SCH ×2 (08:57→21:50)
[2018-09-19] MEDS: ASPIRIN 325 MG ECTAB PO SCH (08:57)
[2018-09-19] MEDS: CLOPIDOGREL BISULFATE 75 MG TAB PO SCH (08:58)
[2018-09-19] MEDS: CARBAMAZEPINE 100 MG TABCR PO SCH (08:58)
[2018-09-19] MEDS: SIMVASTATIN 80 MG TAB PO SCH (08:58)
[2018-09-19] MEDS: DULOXETINE HCL 30 MG CAP PO SCH (08:59)
[2018-09-19] MEDS: POTASSIUM CHLORIDE 10 MEQ TABCR PO SCH ×2 (08:59→21:49)
[2018-09-19] MEDS: NICOTINE 7 MG/24 HR TDSY TD PRN (09:08)
--- NOTE | 2018-09-19 09:15 | Neurology Consultation ---
Date of Consultation September 19, 2018 Assessment & Plan (1) Altered mental status: Patient had an episode of altered mental status September 18 of a temporary nature. Today, he is neurologically back at baseline being quite awake and alert and cooperative. I suspect that the most likely etiology of his encephalopathy yesterday was postictal. He describes some episodes of shaking of his right leg prior to coming to the hospital. Another possibility would be that he mixed up his medication and had some temporary medication toxicity resulting in confusion. There is no evidence for obvious metabolic abnormality and he does not seem to have any signs of infection. (2) Seizure: Patient does have a history of seizures secondary to his large left middle cerebral artery stroke. He has been on low-dose carbamazepine for many years and have not had any history of seizures over the time that I saw him on this medication. He most recent carbamazepine level was 4.8 in October of 2017. 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 He has been left with a severe expressive aphasia, spastic right karla paresis, mild right karla sensory deficit, and a seizure disorder. He also has had a significant depression over the years but this has been improved and stable. Recommendations: 1. Increase carbamazepine to 200 milligrams twice daily 2. Check a trough carbamazepine level in 2 weeks. 3. I am concerned about being on both doxepin and duloxetine together as this may result in some serotonin syndrome like side effects potentially. Keep duloxitane the same and consider discontinuing doxepin. 4. We could consider further neurologic evaluation including CT angiography of the head and neck and MRI of the brain but I do not believe this patient has any evidence for a TIA or stroke and he is clearly back to his baseline. 5. I see no need for EEG at this time. 6. Increase activity as able. 7. The patient would likely do better living with his sisters in the [place] area. I think it is wiser from a medical standpoint for him to stop living on his own. 8. I certainly could follow him as an outpatient since I have not seen him since October of 2010. Overall, I spent a total of 90 minutes with this case including review of records, direct evaluation the patient at bedside, discussion of the case with the patient at bedside, clinical staff, and Dr. Heath, including differential diagnosis and treatment options. History of Present Illness Reason for Consultation: Patient is a 63 year old , who i was asked to see at the request of Dr. Guajardo, for neurologic consultation regarding acute altered mental status. Requesting Physician: Dr. Guajardo Attending Physician: Amado Heath MD, PhD, [facility] History of Present Illness Early . He had suffered a massive left middle cerebral artery stroke in July of 1995 secondary to left internal carotid artery occlusion associated with heroin/cocaine use. I followed him regularly over time until October of 2010 when I saw him last. Patient has had a significant right spastic karla paresis (arm greater than leg and face), severe expressive aphasia, seizure disorder which has been well controlled with low-dose carbamazepine, mild karla sensory deficit on the right, and depression. This patient had been a significant drug addict having stopped all drug and alcohol usage with this stroke in 1995. Patient also suffered a significant PA in 1988 from cocaine use. He has been living at home with some assistance and his sisters, will live in [place], oversee his care. Apparently, a sister talk to him approximately 2330 on September 17 and he was at baseline. A sister found him somewhere between 0800 and 0830 at home being groggy and confused. Pills were out on the table and at disorganized fashion. Typically he is good with his pill taking. The patient himself believes that he had 3 separate shaking episodes of at least his right lower extremity that morning. He cannot give any other details because of his aphasia but he may have fallen and landed on his right leg injuring it. He arrived at the emergency room September 18 at 0945 with a pulse of 68 and regular, respiratory rate 18 uncomfortable, blood pressure 130/65, and O2 saturation 95 percent. He had the aphasia but was cooperative. CT scan of the head was unremarkable Chest x-ray was unremarkable CBC showed some anemia. He had an elevated white count at but today it is normal. His troponin was elevated. Hemoglobin A1c was 6.1 chemistry profile was unremarkable otherwise. He has positive hep C and had a negative urinalysis. Currently he has some discomfort with his right knee but otherwise is not in pain or of headaches. He is not dizzy. Allergies Allergy/AdvReac Type Severity Reaction Status Date / Time No Known Allergies Allergy Unknown Verified 09/18/18 11:56 Home Medications Home Medications Medication Instructions Recorded Confirmed Type albuterol sulfate [Ventolin HFA] 1 - 2 puff INHALATION Q4 PRN 08/24/18 09/18/18 History aspirin 325 mg PO DAILY 08/24/18 09/18/18 History celecoxib 100 mg PO DAILY 08/24/18 09/18/18 History docusate sodium 100 mg PO BID PRN 08/24/18 09/18/18 History doxepin 25 mg PO HS 08/24/18 09/18/18 History duloxetine 30 mg PO QAM 08/24/18 09/18/18 History duloxetine 60 mg PO QPM 08/24/18 09/18/18 History fluticasone-salmeterol [Advair 1 inh INHALATION BID 08/24/18 09/18/18 History Diskus] linaclotide [Linzess] 145 mg PO QAM 08/24/18 09/18/18 History lorazepam 0.5 - 1 mg PO DAILY PRN 08/24/18 09/18/18 History simvastatin 80 mg PO DAILY 08/24/18 09/18/18 History tramadol 50 mg PO Q6 PRN 08/24/18 09/18/18 History trazodone 50 - 100 mg PO HS PRN 08/24/18 09/18/18 History baclofen 10 mg PO TID PRN 09/18/18 09/18/18 History carbamazepine [Tegretol XR] 100 mg PO BID 09/18/18 09/18/18 History potassium chloride 10 meq PO BID 09/18/18 09/18/18 History Patient History Medical History TIA (transient ischemic attack) (Chronic) Carbamazepine toxicity (Acute) Dizziness (Acute) History of CVA (cerebrovascular accident) (Acute) Leg pain (Acute) Medication refill (Acute) Myocarditis (Acute 09/18/11) Acute pain of right knee (Inactive) Dislocation, hip closed (Inactive) Surgical History History of hip replacement Social History Preferred Language: Marshallese Communication Ability: Impaired Hair Tinter Required: No Beliefs That Will Affect Care: None marital status: Single Current Living Situation: Alone Current Living Situation Comment: independent apartment at [facility], was in [place] ago current occupational status: disabled Other Information That Helps Us Care for You: No Feels Safe at Home: Yes Safety Concerns: Feels Safe At This Time Smoking Status: Current every day smoker Hx Alcohol Use: Yes Hx Substance Use: Yes (former heroine and cocaine user) Review of Systems Constitutional: no fever, no body aches and no fatigue Eyes: no diplopia, no eye pain and no worsening vision Ear, Nose, Mouth, Throat: no ear pain, no tinnitus, no hearing loss and no dysphagia Respiratory: no cough and no dyspnea Cardiovascular: no chest pain, no dyspnea and no palpitations Gastrointestinal: no abdominal pain, no nausea and no vomiting Genitourinary (Male): no dysuria, no urinary frequency and no urinary incontinence Musculoskeletal: no back pain, no neck pain, no radicular pain, no myalgia, no muscle weakness and no muscle atrophy Integumentary: no rash and no lesions Neurologic: + gait abnormality, + localized weakness, + numbness and + abnormal speech; no falls, no generalized weakness, no tingling, no tremor(s), no abnormal movements, no dizziness, no headache(s), no behavioral changes, no confusion and no memory loss Psychiatric: no depression, no abnormal sleep pattern, no anxiety, no difficulty concentrating, no confusion and no hallucinations Endocrine: no fatigue and no flushing Hematologic / Lymphatic: no easy bleeding and no easy bruising Allergy / Immunological: no urticaria Physical Exam Vital Signs (Past 24 Hours): Last Vital Signs Temp 36.3 C L 09/19/18 08:31 Pulse 65 09/19/18 08:31 Resp 18 09/19/18 08:31 BP 116/49 L 09/19/18 08:31 Pulse Ox 97 09/19/18 08:31 Physical Exam: The patient is right-handed. The patient is awake, alert, and attentive. Speech slightly dysarthric and he has an extreme expressive aphasia with the inability to name objects or colors. He is not using now ounces sentences but uses words like �right, yes, no�. He will follow one-step commands very well. When posed any yes or no fashion he will seemingly answer the questions correctly. He does not seem to be confused and has reasonable memory for his condition both long and short term. Because of his expressive aphasia it is very difficult to get information from him. His mood seems to be quite good without depression or anxiety. The affect seems appropriate. The discs are sharp with positive venous pulsations bilaterally. There are no exudates, hemorrhages, or blood vessel changes seen. Pupils are 4 mm bilaterally and reactive to light. Extraocular eye muscles are intact without nystagmus. Visual acuity and visual locke seem normal grossly to confrontation. There are no deficits to sensation in the face in all 3 distributions of the fifth cranial nerve bilaterally. Corneal reflexes are positive bilaterally. Facial movement seems normal bilaterally but he does have a facial droop and asymmetry on the right. Hearing seems intact grossly to voice and finger rub bilaterally. Palate moves well without asymmetry. There is normal sternocleidomastoid and trapezius (shoulder shrug) strength bilaterally. Tongue is midline with good strength bilaterally. Neck has a full range of motion without discomfort. There are no cervical bruits bilaterally. There are no cranial or ocular bruits. Heart is without murmur. There is a regular rhythm and rate. Cervical, thoracic, and lumbar spine are nontender to palpation. Gait is not tested but stance sitting up in bed is reasonable. With outstretched arms there is no drift on the left. There are no resting, postural, or action tremors bilaterally. There is no ataxia with finger to nose testing on the left. There is good facility in the left hand. No other abnormal involuntary movements are noted. Motor strength is 5/5 diffusely in the left arm and leg both proximally and distally. There is good tone in the left arm and leg and no focal atrophy is noted (although he is thin distally throughout). The right arm and leg have 4- /5 strength proximally and 0/5 strength distally. He has significant contractures in the right upper extremity and spasticity/contractures to a lesser degree in the right lower extremity. He has some atrophy distally in the right upper extremity. Sensory examination is intact to touch and pin in the left arm and leg diffusely. There is some decreased sensation mildly the 5 to these parameters in the right arm leg. Reflexes are 1/4 in the biceps, triceps, brachioradialis, quadriceps, and Achilles tendons on the left and 2/4 in these reflexes on the right. Toes are downgoing with plantar stimulation on the left and upgoing on the right. Peripheral pulses are present and of normal quality distally in all 4 limbs. There is no peripheral edema noted in the limbs.
[2018-09-19 09:19] LABS: Basophils # (auto) 0.05 K/uL (0-0.2); Basophils % (auto) 0.6 %; Eosinophils # (auto) 0.15 K/uL (0-0.5); Eosinophils % (auto) 1.8 %; Immature Granulocytes # (auto) 0.03 K/uL (0.00-0.02); Immature Granulocytes % (auto) 0.4 %; Lymphocytes % (auto) 20.4 %; Monocytes # (auto) 0.75 K/uL (0.11-0.59); Neutrophils # (auto) 5.67 K/uL (1.4-6.5); Neutrophils % (auto) 67.8 %
[2018-09-19 10:04] LABS: Troponin I 0.68 ng/ml (0-0.045)
--- NOTE | 2018-09-19 10:52 | Cardiology Consultation ---
Date of Consultation September 19, 2018 Assessment & Plan (1) Elevated troponin: He has an elevated troponin in a pattern most consistent with demand ischemia. Although we do not know exactly what happened prior to coming into the hospital it is probably due to that. He may have coronary artery disease, that is probably likely, but this is not indicative of an acute infarction and I would not treated as such. (2) Atherosclerosis: He has atherosclerosis, some of his neurologic events and perhaps a myocardial infarction in the past was due to drug abuse but this is in the setting of atherosclerotic disease which has been identified at least on carotid ultrasound. I do not know if he has had a catheterization but I suspect he also has coronary artery disease although I do not think we should look for it. He is being treated with platelet inhibitors and statins, that is appropriate treatment for his known atherosclerosis. I would not pursue further evaluation at this time. (3) Tobacco use disorder: I believe he is still smoking based on his chart, I cannot really tell from his answer. He should stop. History of Present Illness Reason for Consultation: Elevated troponin Attending Physician: Amado Heath MD, PhD, [facility] History of Present Illness This is a 63-year-old gentleman who has cerebrovascular disease (based on ultrasound) and also has had a stroke in the past, although his stroke may have been in part due to drug abuse. He has difficulty communicating in general. He is reported to have had a myocardial infarction in 1987 due to cocaine abuse. He has been having ambulatory difficulty and was in a facility until discharge September 10, on September 18, 2018, his sister visited and noted that he was quite groggy and not very interactive and they noted many pills on the table. He came into the emergency room and was admitted. He was noted to have troponin elevation following admission, it increased from 0.021 on arrival to 1.1 8-1/2 hours later, and then dropped back down to 0.68 about 22 hours after admission. He is difficult to communicate with although he is awake and alert, he has a clear expressive a fascia and his right side has limited motion. He says no when asked about chest discomfort, but I do not know if he is answering correctly. Allergies Allergy/AdvReac Type Severity Reaction Status Date / Time No Known Allergies Allergy Unknown Verified 09/18/18 11:56 Home Medications Home Medications Medication Instructions Recorded Confirmed Type albuterol sulfate [Ventolin HFA] 1 - 2 puff INHALATION Q4 PRN 08/24/18 09/18/18 History aspirin 325 mg PO DAILY 08/24/18 09/18/18 History celecoxib 100 mg PO DAILY 08/24/18 09/18/18 History docusate sodium 100 mg PO BID PRN 08/24/18 09/18/18 History doxepin 25 mg PO HS 08/24/18 09/18/18 History duloxetine 30 mg PO QAM 08/24/18 09/18/18 History duloxetine 60 mg PO QPM 08/24/18 09/18/18 History fluticasone-salmeterol [Advair 1 inh INHALATION BID 08/24/18 09/18/18 History Diskus] linaclotide [Linzess] 145 mg PO QAM 08/24/18 09/18/18 History lorazepam 0.5 - 1 mg PO DAILY PRN 08/24/18 09/18/18 History simvastatin 80 mg PO DAILY 08/24/18 09/18/18 History tramadol 50 mg PO Q6 PRN 08/24/18 09/18/18 History trazodone 50 - 100 mg PO HS PRN 08/24/18 09/18/18 History baclofen 10 mg PO TID PRN 09/18/18 09/18/18 History carbamazepine [Tegretol XR] 100 mg PO BID 09/18/18 09/18/18 History potassium chloride 10 meq PO BID 09/18/18 09/18/18 History Patient History Medical History TIA (transient ischemic attack) (Chronic) Carbamazepine toxicity (Acute) Dizziness (Acute) History of CVA (cerebrovascular accident) (Acute) Leg pain (Acute) Medication refill (Acute) Myocarditis (Acute 09/18/11) Acute pain of right knee (Inactive) Dislocation, hip closed (Inactive) Surgical History History of hip replacement Family History Father TIA (transient ischemic attack) Mother , s/p cdiff and PNA infections Ischemic cardiomyopathy Other Family history non-contributory Social History Preferred Language: Omani Communication Ability: Impaired Petrographer Required: No Beliefs That Will Affect Care: None marital status: Single Current Living Situation: Alone Current Living Situation Comment: independent apartment at [facility], was in [place] ago current occupational status: disabled Other Information That Helps Us Care for You: No Feels Safe at Home: Yes Safety Concerns: Feels Safe At This Time Smoking Status: Current every day smoker Hx Alcohol Use: Yes Hx Substance Use: Yes (former heroine and cocaine user) Review of Systems Although he is awake and alert his review of systems is not possible due to his expressive a fascia Physical Exam Vital Signs (Past 24 Hours): Last Vital Signs Temp 36.3 C L 09/19/18 08:31 Pulse 65 09/19/18 08:31 Resp 18 09/19/18 08:31 BP 116/49 L 09/19/18 08:31 Pulse Ox 97 09/19/18 08:31 Physical Exam: Constitutional: Alert, cooperative and in no distress. Expressive a fascia. HEENT: Unremarkable Neck: No jugular venous distention, carotid pulses are normal and equal bilaterally without bruits. Pulmonary: Clear to auscultation bilaterally. Cardiac: Regular rhythm with a soft systolic murmur, no gallop or rub. Abdomen: Soft, nontender with normal bowel sounds. Extremities: No edema. Distal pulses intact. Neurologic: Right arm and leg weakness and/or paralysis. Gait was not tested. Skin: No rash, ecchymoses or petechiae. Results & Data Diagnostic Findings His electrocardiogram on September 18, 2018 at 10:30 AM shows sinus rhythm at 66 bpm and it is essentially normal. He had a carotid ultrasound performed April 21, 2015 where he had occlusion of the right internal carotid artery, occlusion of the left internal carotid artery with the external carotid arteries patent. An echocardiogram done September 11, 2011 shows low normal overall left ventricular function with mild aortic sclerosis.
[2018-09-19] MEDS: ACETAMINOPHEN 325 MG TAB PO PRN (12:25)
--- NOTE | 2018-09-19 16:11 | Hospitalist Progress Note ---
Date of Service September 19, 2018 Assessment & Plan (1) Altered mental status: (2) History of CVA (cerebrovascular accident): (3) Depression: (4) COPD (chronic obstructive pulmonary disease): (5) Anxiety: (6) Seizure: (7) Tobacco use disorder: (8) DVT prophylaxis: 63 y/o M was admitted on September 18, 2018 after being found with AMS at home likely secondary to postictal symptom seizure or TIA, Per pt's sister, pt has a hx of CVA 22 yrs ago as the result of heroin use. Altered mental status, origin unknown, likely secondary to postictal symptom seizure or TIA, History of CVA, with R sided deficits at baseline History of seizure medication Neurology see patient, CT was unremarkable,, recs Increase carbamazepine to 200 milligrams twice daily, Check a trough carbamazepine level in 2 weeks. neuro concerned about being on both doxepin and duloxetine together as this may result in some serotonin syndrome like side effects potentially. Keep duloxitane the same and consider discontinuing doxepin as outpatient in a follow-up visit per neurologist, may consider further neurologic evaluation including CT angiography of the head and neck and MRI of the brain. Patient will need to follow-up with his neurologist after discharge Resume home medication PT/OT pending Mild accelerated hypertension blood pressure at 170/67, will follow up Elevated troponin, which has been trans-down, etiology unknown, possible impending ischemia Tobacco abuse disorder, offered nicotine patch, DVT prophylaxis will be on SCD Social issues, patient if along with a caregiver at home, 2 daughter was shared power of criminal defense attorney and if in [place], family is talking to renal case manager for possible skilled nursing, Will follow up with PT OT and supportive employment case manager input Full code, Subjective Awake alert orientated, conversational, follow up commands, mild dysphasia and right side paralyzed from CVA from previous stroke Otherwise unremarkable, Denies fever chills, denied no "tingling and numbness, denies noted speech facial droop, Denies cough sputum shortness of breath, denies dysuria urgency and frequency Physical Exam Vital Signs (Past 24 Hours): Last Vital Signs Temp 36.7 C 09/19/18 12:16 Pulse 66 09/19/18 12:16 Resp 20 09/19/18 12:16 BP 170/67 H 09/19/18 12:16 Pulse Ox 99 09/19/18 12:16 Physical Exam: Constitutional: Alert, cooperative and in no distress. Expressive aphascia. HEENT: Unremarkable Neck: No jugular venous distention, carotid pulses are normal and equal bilaterally without bruits. Pulmonary: Decreased auscultation bilaterally. No wheezing rhonchi or crackles Cardiac: Regular rhythm with a soft systolic murmur, no gallop or rub. Abdomen: Soft, nontender with normal bowel sounds. Extremities: No edema. Distal pulses intact. Neurologic: Right arm and leg weakness and/or paralysis. Skin: No rash, ecchymoses or petechiae. Results & Data Laboratory Results Laboratory Results - last 24 hr 09/18/18 09/18/18 09/18/18 10:58 11:11 15:37 WBC RBC Hgb Hct MCV MCH MCHC RDW Std Deviation RDW Coeff of Wesley Plt Count MPV Immature Gran % (Auto) Neut % (Auto) Lymph % (Auto) Fergus % (Auto) Eos % (Auto) Baso % (Auto) Immature Gran # (Auto) Neut # (Auto) Lymph # (Auto) Fergus # (Auto) Eos # (Auto) Baso # (Auto) Sodium Potassium Chloride Carbon Dioxide Anion Gap BUN Creatinine Est Cr Clr Drug Dosing Est GFR ( Amer) Est GFR (Non-Af Amer) BUN/Creatinine Ratio Glucose POC Glucose 97 Calcium Phosphorus Magnesium Troponin I 0.492 H* Triglycerides Cholesterol LDL Cholesterol, Calc VLDL Cholesterol, Calc HDL Cholesterol Cholesterol/HDL Ratio Hepatitis C Ab Screen Pos H 09/18/18 09/19/18 09/19/18 20:36 07:48 07:48 WBC 8.35 RBC 4.28 L Hgb 13.6 L Hct 41.0 L MCV 95.8 MCH 31.8 MCHC 33.2 RDW Std Deviation 44.2 RDW Coeff of Wesley 12.9 Plt Count 334 MPV 9.2 Immature Gran % (Auto) 0.4 Neut % (Auto) 67.8 Lymph % (Auto) 20.4 Fergus % (Auto) 9.0 Eos % (Auto) 1.8 Baso % (Auto) 0.6 Immature Gran # (Auto) 0.03 H Neut # (Auto) 5.67 Lymph # (Auto) 1.70 Fergus # (Auto) 0.75 H Eos # (Auto) 0.15 Baso # (Auto) 0.05 Sodium 141 Potassium 4.3 Chloride 109 H Carbon Dioxide 24 Anion Gap 8.0 BUN 14 Creatinine 0.80 Est Cr Clr Drug Dosing 66.9 Est GFR ( Amer) 108.7 Est GFR (Non-Af Amer) 93.7 BUN/Creatinine Ratio 17.8 Glucose 87 POC Glucose Calcium 8.5 Phosphorus 3.0 Magnesium 1.7 L Troponin I 1.120 H* Triglycerides Cancelled Cholesterol Cancelled LDL Cholesterol, Calc Cancelled VLDL Cholesterol, Calc Cancelled HDL Cholesterol Cancelled Cholesterol/HDL Ratio Cancelled Hepatitis C Ab Screen 09/19/18 09:23 WBC RBC Hgb Hct MCV MCH MCHC RDW Std Deviation RDW Coeff of Wesley Plt Count MPV Immature Gran % (Auto) Neut % (Auto) Lymph % (Auto) Fergus % (Auto) Eos % (Auto) Baso % (Auto) Immature Gran # (Auto) Neut # (Auto) Lymph # (Auto) Fergus # (Auto) Eos # (Auto) Baso # (Auto) Sodium Potassium Chloride Carbon Dioxide Anion Gap BUN Creatinine Est Cr Clr Drug Dosing Est GFR ( Amer) Est GFR (Non-Af Amer) BUN/Creatinine Ratio Glucose POC Glucose Calcium Phosphorus Magnesium Troponin I 0.680 H* Triglycerides 126 Cholesterol 157 LDL Cholesterol, Calc 64 VLDL Cholesterol, Calc 25 HDL Cholesterol 68 Cholesterol/HDL Ratio 2 Hepatitis C Ab Screen (1) Altered mental status Altered mental status type: unspecified Qualified Code(s): R41.82 - Altered mental status, unspecified
[2018-09-19] MEDS: DULOXETINE HCL 60 MG CAP PO SCH (21:49)
[2018-09-19] MEDS: CARBAMAZEPINE 200 MG TABCR PO SCH (21:50)
[2018-09-19] MEDS: DOXEPIN HCL 25 MG CAPSULE PO SCH (21:50)
[2018-09-20] MEDS: FLUTICASONE/SALMETEROL 250/50 (ADVAIR) 14 PUFF/1 INHALER INH SCH ×2 (08:35→20:29)
[2018-09-20] MEDS: SIMVASTATIN 80 MG TAB PO SCH (08:36)
[2018-09-20] MEDS: CLOPIDOGREL BISULFATE 75 MG TAB PO SCH (08:36)
[2018-09-20] MEDS: DULOXETINE HCL 30 MG CAP PO SCH (08:36)
[2018-09-20] MEDS: CARBAMAZEPINE 200 MG TABCR PO SCH ×2 (08:37→20:29)
[2018-09-20] MEDS: ASPIRIN 325 MG ECTAB PO SCH (08:37)
[2018-09-20] MEDS: POTASSIUM CHLORIDE 10 MEQ TABCR PO SCH ×2 (08:37→20:28)
--- NOTE | 2018-09-20 10:37 | Neurology Progress Note ---
Date of Service September 20, 2018 Assessment & Plan (1) Altered mental status: Patient had an episode of altered mental status September 18 of a temporary nature. Over the last 24 hours, he is neurologically back at baseline, being quite awake and alert and cooperative. I suspect that the most likely etiology of his encephalopathy yesterday was postictal. He describes some episodes of shaking of his right leg prior to coming to the hospital. Another possibility would be that he mixed up his medication and had some temporary medication toxicity resulting in confusion. There is no evidence for obvious metabolic abnormality otherwise and he does not seem to have any signs of infection. (2) Seizure: Patient does have a history of seizures secondary to his large left middle cerebral artery stroke. He has been on low-dose carbamazepine for many years and have not had any history of seizures over the time that I saw him on this medication. He most recent carbamazepine level was 4.8 in October of 2017. 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 He has been left with a severe expressive aphasia, spastic right karla paresis, mild right karla sensory deficit, and a seizure disorder. He also has had a significant depression over the years but this has been improved and stable. Recommendations: 1. Continue carbamazepine to 200 milligrams twice daily 2. Check a trough carbamazepine level in 1-2 weeks. 3. Continue duloxitine the same and discontinue doxepin -there is no need to be on both and there is a risk of serotonin syndrome. 4. I see no need for additional neurologic testing at this time 5. I see no need for EEG at this time. 6. Increase activity as able. 7. The patient would likely do better living with his sisters in the [facility]. They will be taking him there directly from this hospitalization. 8. Discontinue Plavix and continue 81 milligram aspirin tablet daily. Overall, I spent a total of 35 minutes with this case including review of records, direct evaluation the patient at bedside, discussion of the case with the patient at bedside, his sister at bedside, clinical staff, and Dr. Heath, including differential diagnosis and treatment options. Subjective The patient feels good with no pain or headache. He has not had any additional seizures or abnormal movements since in the hospital. He feels back to baseline. Blood pressure is 133/64. I notice he is on both aspirin and Plavix. Carbamazepine is 200 milligrams twice a day. Patient's sister, Naima wang from [place] is present in the room today. Physical Exam Vital Signs (Past 24 Hours): Last Vital Signs Temp 36.8 C 09/20/18 07:43 Pulse 63 09/20/18 07:43 Resp 18 09/20/18 07:43 BP 133/64 09/20/18 07:43 Pulse Ox 98 09/20/18 07:43 Physical Exam: He is awake and alert. Speech is with severe expressive aphasia but at baseline. The patient is pleasant and cooperative and follows commands well. His memory is at baseline. Extraocular eye muscles are intact without nystagmus. He has spastic right karla paresis as before and the left side is strong. He has no abnormal involuntary movements.
--- NOTE | 2018-09-20 15:31 | Hospitalist Progress Note ---
Date of Service September 20, 2018 Assessment & Plan (1) Altered mental status: (2) History of CVA (cerebrovascular accident): (3) Depression: (4) COPD (chronic obstructive pulmonary disease): (5) Anxiety: (6) Seizure: (7) Tobacco use disorder: (8) DVT prophylaxis: 63 y/o M was admitted on September 18, 2018 after being found with AMS at home likely secondary to postictal symptom seizure or TIA, Per pt's sister, pt has a hx of CVA 22 yrs ago as the result of heroin use. hx was at [facility] x10 days for ambulation issues related to his right frequent dislocation of the hip Altered mental status upon admission, origin unknown, continue getting more sharp and clear in speaking likely secondary to postictal symptom seizure, less likely TIA, History of CVA, with R sided deficits at baseline History of seizure medication Neurologist saw patient, CT was unremarkable,, recs Increase carbamazepine to 200 milligrams twice daily, Check a trough carbamazepine level in 2 weeks. neuro concerned about being on both doxepin and duloxetine together as this may result in some serotonin syndrome like side effects potentially. DC doxepin , Patient will need to follow-up with his neurologist after discharge Resume home medication PT/OT pending Mild accelerated hypertension blood pressure at 170/67, which has been better Elevated troponin, which has been trans-down, etiology unknown, possible impending ischemia stool incontinence x1, sister is concerned, I feel this is just 1 episode of incidental, recommend continue to watch Tobacco abuse disorder, offered nicotine patch, DVT prophylaxis will be on SCD Social issues, patient if along with a caregiver at home, 2 daughter was shared power of securities attorney and if in [place], family is talking to caser up for possible assisted, I agree with this because patient was able to live independently by himself at home, he seems to need a lot of help for now, I would strongly recommend to discharge to assisted to continue rehab Full code, DVT prophylaxis, possible discharge home tomorrow Subjective Significantly improved, more alert, and more sharp in conversation, more fluent in talking awake alert orientated, conversational, follow up commands, right side paralyzed from CVA from previous stroke Sister reported has one-time stool incontinence Otherwise unremarkable, Denies fever chills, denied no "tingling and numbness, denies noted speech facial droop, Denies cough sputum shortness of breath, denies dysuria urgency and frequency Physical Exam Vital Signs (Past 24 Hours): Last Vital Signs Temp 36.9 C 09/20/18 15:14 Pulse 72 09/20/18 15:14 Resp 19 09/20/18 15:14 BP 151/70 H 09/20/18 15:14 Pulse Ox 100 09/20/18 15:14 Physical Exam: Constitutional: Alert, cooperative and in no distress. HEENT: Unremarkable Neck: No jugular venous distention, carotid pulses are normal and equal bilaterally without bruits. Pulmonary: Decreased auscultation bilaterally. No wheezing rhonchi or crackles Cardiac: Regular rhythm with a soft systolic murmur, no gallop or rub. Abdomen: Soft, nontender with normal bowel sounds. Extremities: No edema. Distal pulses intact. Neurologic: Right arm and leg weakness and/or paralysis. Skin: No rash, ecchymoses or petechiae. (1) Altered mental status Altered mental status type: unspecified Qualified Code(s): R41.82 - Altered mental status, unspecified
[2018-09-20] MEDS: ACETAMINOPHEN 325 MG TAB PO PRN (20:29)
[2018-09-20] MEDS: DULOXETINE HCL 60 MG CAP PO SCH (20:29)
[2018-09-21] MEDS: FLUTICASONE/SALMETEROL 250/50 (ADVAIR) 14 PUFF/1 INHALER INH SCH ×2 (08:45→20:09)
[2018-09-21] MEDS: SIMVASTATIN 80 MG TAB PO SCH (08:46)
[2018-09-21] MEDS: DULOXETINE HCL 30 MG CAP PO SCH (08:46)
[2018-09-21] MEDS: ASPIRIN 325 MG ECTAB PO SCH (08:47)
[2018-09-21] MEDS: POTASSIUM CHLORIDE 10 MEQ TABCR PO SCH ×2 (08:47→20:59)
[2018-09-21] MEDS: CARBAMAZEPINE 200 MG TABCR PO SCH ×2 (08:47→21:00)
[2018-09-21] MEDS: NICOTINE 7 MG/24 HR TDSY TD PRN (09:16)
[2018-09-21] MEDS ORDERED: BACLOFEN 10 MG TAB PO PRN (15:01)
--- NOTE | 2018-09-21 15:11 | Hospitalist Progress Note ---
Date of Service September 21, 2018 Assessment & Plan (1) Altered mental status: (2) History of CVA (cerebrovascular accident): (3) Depression: (4) COPD (chronic obstructive pulmonary disease): (5) Anxiety: (6) Seizure: (7) Tobacco use disorder: (8) DVT prophylaxis: 63 y/o M was admitted on September 18, 2018 after being found with AMS at home likely secondary to postictal seizure or TIA, Per pt's sister, pt has a hx of CVA 22 yrs ago as the result of heroin use. 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 neuro concerned about being on both doxepin and duloxetine together as this may result in some serotonin syndrome like side effects potentially. DC doxepin , Patient will need to follow-up with his neurologist after discharge Mild accelerated hypertension blood pressure at 170/67, which has been better Elevated troponin, which has been trans-down, etiology unknown, possible demanding ischemia, no ACS Tobacco abuse disorder, offered nicotine patch, DVT prophylaxis will be on SCD Social issues, patient lives alone with a caregiver at home, 2 sisters was shared power of collections attorney and if in [place], family is talking to renal case manager for possible [facility], I agree with this because patient was able to live independently by himself at home, he seems needimg a lot of help for now, I would strongly recommend to discharge to [facility] to continue rehab Full code, DVT prophylaxis, medically ready to discharge, renal case manager for discharge plan Subjective cont improving more alert, and more sharp in conversation, more fluent in talking , strength is improving to he up and walk with cane by himself with some assistance awake alert orientated, conversational, follow up commands, right side paralyzed from previous stroke no stool incontinence Otherwise unremarkable, Denies fever chills, denied "tingling and numbness, denies noted speech facial droop, Denies cough sputum shortness of breath, denies dysuria urgency and frequency Denies dysuria urgency and frequency Physical Exam Vital Signs (Past 24 Hours): Last Vital Signs Temp 36.9 C 09/21/18 11:40 Pulse 77 09/21/18 11:40 Resp 18 09/21/18 11:40 BP 114/56 L 09/21/18 11:40 Pulse Ox 98 09/21/18 11:40 Physical Exam: Constitutional: Alert, cooperative and in no distress. Expressive aphascia. HEENT: Unremarkable Neck: No jugular venous distention, carotid pulses are normal and equal bilaterally without bruits. Pulmonary: Decreased auscultation bilaterally. No wheezing rhonchi or crackles Cardiac: Regular rhythm with a soft systolic murmur, no gallop or rub. Abdomen: Soft, nontender with normal bowel sounds. Extremities: No edema. Distal pulses intact. Neurologic: Right arm and leg weakness and/or paralysis. Skin: No rash, ecchymoses or petechiae. (1) Altered mental status Altered mental status type: unspecified Qualified Code(s): R41.82 - Altered mental status, unspecified
[2018-09-21] MEDS: MAGNESIUM HYDROXIDE SUSP 30 ML UDC PO PRN (20:13)
[2018-09-21] MEDS: DOCUSATE SODIUM 100 MG CAP PO PRN (20:57)
[2018-09-21] MEDS: DULOXETINE HCL 60 MG CAP PO SCH (20:58)
[2018-09-22] MEDS: FLUTICASONE/SALMETEROL 250/50 (ADVAIR) 14 PUFF/1 INHALER INH SCH ×2 (09:37→20:26)
[2018-09-22] MEDS: DULOXETINE HCL 30 MG CAP PO SCH (09:38)
[2018-09-22] MEDS: CELECOXIB 100 MG CAP PO SCH (09:38)
[2018-09-22] MEDS: ASPIRIN 325 MG ECTAB PO SCH (09:38)
[2018-09-22] MEDS: POTASSIUM CHLORIDE 10 MEQ TABCR PO SCH ×2 (09:39→20:27)
[2018-09-22] MEDS: CARBAMAZEPINE 200 MG TABCR PO SCH ×2 (09:39→20:27)
[2018-09-22] MEDS: SIMVASTATIN 80 MG TAB PO SCH (09:40)
[2018-09-22] MEDS: LINZESS 145 MCG PO SCH ×3 (09:41→16:01)
[2018-09-22] MEDS ORDERED: NURSING DECISION MEDICATION ONE (10:44)
--- NOTE | 2018-09-22 10:45 | Hospitalist Progress Note ---
Date of Service September 22, 2018 Assessment & Plan (1) Altered mental status: (2) History of CVA (cerebrovascular accident): (3) Depression: (4) COPD (chronic obstructive pulmonary disease): (5) Anxiety: (6) Seizure: continue home tegretol dosing to prevent seizares (7) Tobacco use disorder: (8) DVT prophylaxis: 63 y/o M was admitted on September 18, 2018 after being found with AMS at home likely secondary to postictal seizure or TIA, has been stable, pending for half-way rehab hx of CVA 22 yrs ago as the result of heroin use. 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 DC doxepin , Patient will need to follow-up with his neurologist after discharge Superficial wounds in right lower extremity at least 2 spots, seems the same as yesterday, continue wound care Mild accelerated hypertension blood pressure at 170/67, resolved Elevated troponin upon admission, which has been trans-down, etiology unknown, possible demanding ischemia, no ACS Tobacco abuse disorder, offered nicotine patch, DVT prophylaxis will be on SCD Social issues, patient lives alone with a caregiver at home, 2 sisters was shared power of yard switch operator and if in [place], family is talking to rn case manager hospice for possible half-way, I agree with this because patient was able to live independently by himself at home, he seems needimg a lot of help for now, I would strongly recommend to discharge to half-way to continue rehab Full code DVT prophylaxis, medically ready to discharge, rn case manager hospice for discharge plan Subjective Doing the same, possible strength is improving Continue up and walk with cane by himself with some assistance Complaint above right leg wounds which is pain, sister reported possible getting worse awake alert orientated, conversational, follow up commands, right side paralyzed from previous stroke no stool incontinence Otherwise unremarkable, Denies fever chills, denied "tingling and numbness, denies noted speech facial droop, Denies cough sputum shortness of breath, denies dysuria urgency and frequency Denies dysuria urgency and frequency Physical Exam Vital Signs (Past 24 Hours): Last Vital Signs Temp 36.6 C 09/22/18 07:23 Pulse 65 09/22/18 07:23 Resp 18 09/22/18 07:23 BP 119/76 09/22/18 07:23 Pulse Ox 100 09/22/18 07:23 Physical Exam: Constitutional: Alert, cooperative and in no distress. Expressive aphascia, which is better HEENT: Unremarkable Neck: No jugular venous distention, carotid pulses are normal and equal bilaterally without bruits. Pulmonary: Decreased auscultation bilaterally. No wheezing rhonchi or crackles Cardiac: Regular rhythm with a soft systolic murmur, no gallop or rub. Abdomen: Soft, nontender with normal bowel sounds. Extremities: No edema. Distal pulses intact. Neurologic: Right arm and leg weakness and/or paralysis. Skin: Right medial and lateral knee has superficial wounds, no obvious drainages, right second toes has some red and erythema, minimal swelling, no limited range of motion, (1) Altered mental status Altered mental status type: unspecified Qualified Code(s): R41.82 - Altered mental status, unspecified
[2018-09-22] MEDS: BENZONATATE 100 MG CAPSULE PO SCH ×3 (12:11→20:27)
[2018-09-22] MEDS: NICOTINE 7 MG/24 HR TDSY TD PRN (12:15)
[2018-09-22] MEDS: TRAMADOL HCL 50 MG TABLET PO PRN (19:42)
[2018-09-22] MEDS: DULOXETINE HCL 60 MG CAP PO SCH (20:28)
[2018-09-23] MEDS: TRAMADOL HCL 50 MG TABLET PO PRN ×3 (05:06→22:17)
[2018-09-23] MEDS: POTASSIUM CHLORIDE 10 MEQ TABCR PO SCH ×2 (09:14→22:06)
[2018-09-23] MEDS: ASPIRIN 325 MG ECTAB PO SCH (09:15)
[2018-09-23] MEDS: CELECOXIB 100 MG CAP PO SCH (09:15)
[2018-09-23] MEDS: BENZONATATE 100 MG CAPSULE PO SCH ×3 (09:15→22:05)
[2018-09-23] MEDS: SIMVASTATIN 80 MG TAB PO SCH (09:15)
[2018-09-23] MEDS: CARBAMAZEPINE 200 MG TABCR PO SCH ×2 (09:15→22:07)
[2018-09-23] MEDS: DULOXETINE HCL 30 MG CAP PO SCH (09:18)
[2018-09-23] MEDS: ALBUTEROL HFA 8 GM INHALER INH PRN (09:18)
[2018-09-23] MEDS: FLUTICASONE/SALMETEROL 250/50 (ADVAIR) 14 PUFF/1 INHALER INH SCH ×2 (09:18→22:04)
--- NOTE | 2018-09-23 09:22 | Hospitalist Progress Note ---
Date of Service September 23, 2018 Assessment & Plan (1) Altered mental status: (2) History of CVA (cerebrovascular accident): (3) Depression: (4) COPD (chronic obstructive pulmonary disease): (5) Anxiety: (6) Seizure: (7) Tobacco use disorder: (8) DVT prophylaxis: 63 y/o M was admitted on September 18, 2018 after being found with AMS at home likely secondary to postictal seizure or TIA, has been stable, pending for senior living rehab hx of CVA 22 yrs ago as the result of heroin use. Prior to this admission has hx was at [facility] x10 days for ambulation issues related to his right frequent dislocation of the hip Altered mental status upon admission, admitting interviewer unknown, resolved and possible in baseline, AMS likely secondary to postictal seizure, less likely TIA, History of CVA, with R sided spasmatic deficits, is at baseline History of seizure , on medication Neurologist saw patient, CT was unremarkable, has increased carbamazepine to 200 milligrams twice daily, Check a trough carbamazepine level in 2 weeks. DC doxepin , Patient will need to follow-up with his neurologist after discharge Superficial wounds in right lower extremity at least 2 spots, no drainages, the same as yesterday, continue wound care Mild accelerated hypertension, resolved Elevated troponin upon admission, which has been trans-down, etiology unknown, possible demanding ischemia, no ACS Tobacco abuse disorder, offered nicotine patch, DVT prophylaxis will be on SCD Social issues, patient lives alone with a caregiver at home, 2 sisters was shared power of divorce attorney and if in [place], family is talking to caseworker for possible senior living, I agree with this because patient was able to live independently by himself at home, he seems needing a lot of help for now, I would strongly recommend to discharge to senior living to continue rehab However , Sisters want to bring him to senior living in [place] , secondary social studies teacher is working on it, if it is difficult to get a place in [place] senior living, I recommend a local senior living first and then transferred from local senior living to senior living in [place]. Full code DVT prophylaxis, medically ready to discharge, caseworker for discharge plan Subjective possible strength is improving , Up and walk with cane with some assistance right leg wounds still pain, awake alert orientated, conversational, Pleasant, finished most of the Meals right side paralyzed from previous stroke no stool incontinence ROS Otherwise unremarkable, Denies fever chills, denied tingling and numbness, denies noted speech facial droop, Denies cough sputum shortness of breath, denies dysuria urgency and frequency Denies dysuria urgency and frequency Physical Exam Vital Signs (Past 24 Hours): Last Vital Signs Temp 36.4 C L 09/23/18 08:00 Pulse 65 09/23/18 08:00 Resp 18 09/23/18 08:00 BP 114/67 09/23/18 08:00 Pulse Ox 100 09/23/18 08:00 Physical Exam: Constitutional: Alert, mild expressive aphascia, Which is not new HEENT: Unremarkable Neck: No jugular venous distention, carotid pulses are normal and equal bilaterally without bruits. Pulmonary: Decreased auscultation bilaterally. No wheezing rhonchi or crackles Cardiac: Regular rhythm with a soft systolic murmur, no gallop or rub. Abdomen: Soft, nontender with normal bowel sounds. Extremities: No edema. Distal pulses intact. Neurologic: Right arm and leg weakness Which is not new Skin: No rash, ecchymoses or petechiae. Results & Data Laboratory Results No lab today, old lab reviewed (1) Altered mental status Altered mental status type: unspecified Qualified Code(s): R41.82 - Altered mental status, unspecified
[2018-09-23] MEDS: NICOTINE 7 MG/24 HR TDSY TD PRN (10:30)
[2018-09-23] MEDS: LINZESS 145 MCG PO SCH (13:58)
[2018-09-23] MEDS: MAGNESIUM HYDROXIDE SUSP 30 ML UDC PO PRN (14:07)
[2018-09-23] MEDS: DULOXETINE HCL 60 MG CAP PO SCH (22:05)
[2018-09-24] MEDS: CARBAMAZEPINE 200 MG TABCR PO SCH ×2 (07:43→20:50)
[2018-09-24] MEDS: POTASSIUM CHLORIDE 10 MEQ TABCR PO SCH ×2 (07:43→20:49)
[2018-09-24] MEDS: DULOXETINE HCL 30 MG CAP PO SCH (07:43)
[2018-09-24] MEDS: SIMVASTATIN 80 MG TAB PO SCH (07:43)
[2018-09-24] MEDS: BENZONATATE 100 MG CAPSULE PO SCH ×3 (07:43→20:51)
[2018-09-24] MEDS: ASPIRIN 325 MG ECTAB PO SCH (07:43)
[2018-09-24] MEDS: CELECOXIB 100 MG CAP PO SCH (07:44)
[2018-09-24] MEDS: FLUTICASONE/SALMETEROL 250/50 (ADVAIR) 14 PUFF/1 INHALER INH SCH ×2 (07:44→20:46)
[2018-09-24] MEDS: ALBUTEROL HFA 8 GM INHALER INH PRN ×2 (07:46→20:53)
[2018-09-24] MEDS: NICOTINE 7 MG/24 HR TDSY TD PRN (08:45)
[2018-09-24] MEDS: TRAMADOL HCL 50 MG TABLET PO PRN ×2 (12:00→19:26)
[2018-09-24] MEDS: MAGNESIUM HYDROXIDE SUSP 30 ML UDC PO PRN (13:46)
[2018-09-24] MEDS: LINZESS 145 MCG PO SCH (13:47)
--- NOTE | 2018-09-24 17:52 | Hospitalist Progress Note ---
Date of Service September 24, 2018 Assessment & Plan (1) Altered mental status: Initially presented to due lethargy and altered mental status. No exact cause noted. CBC, TSH were both normal. CXR was neg for PNA. UA was negative for UTI. Head CT on 09/18 showed remote left MCA territory infarct, but no acute abnormalities. Seen by neurology who felt this was unlikely to be seizure or CVA. He does have many different types of medications on hand and recent depression, cannot fully r/o accidental vs. intentional overdose. Initially held all sedating medications. - Continue ASA - As of 09/24, he was at his baseline. (2) History of CVA (cerebrovascular accident): R-sided deficits at baseline from prior CVA. - Plan for SNF in [place] (3) Depression: Per report from sister, it has been mildly worse recently. - Continue home duloxetine & carbamazepine - Will need carbamazepine level checked around the end of September. (4) Anxiety: As above with depression. (5) Seizure: No inpatient seizures and neurology felt EEG unneccesary in the hospital. - Continue home carbamazepine (6) COPD (chronic obstructive pulmonary disease): No wheezing or trouble breathing. - Continue home Advair - Albuterol PRN (7) Tobacco use disorder: Nicotine patch PRN (8) DVT prophylaxis: SCDs Subjective 63yo M w/ hx of CVA who presents with weakness. Today, he is doing very well. No major concerns. He is very comfortable and had no issues overnight. Reports no fevers/chills, chest pain, shortness of breath, abdominal pain, nausea, or vomiting. Physical Exam Vital Signs (Past 24 Hours): Last Vital Signs Temp 36.5 C 09/24/18 15:13 Pulse 66 09/24/18 15:13 Resp 16 09/24/18 15:13 BP 124/67 09/24/18 15:13 Pulse Ox 97 09/24/18 15:13 Constitutional: + cachectic and + frail appearing Eyes: + anicteric sclerae Neck: normal visual inspection and trachea midline Respiratory: normal respiratory effort, lungs clear to auscultation Cardiovascular: Rate/Rhythm: regular rate and regular rhythm Gastrointestinal (Abdomen): Inspection/Auscultation: abdomen not distended Percussion/Palpation: abdomen soft; abdomen nontender Musculoskeletal: Head/Neck/Chest: normocephalic and head atraumatic Skin: no rashes, warm and dry Neurologic: moves all extremities and awake Psychiatric: Orientation: alert, oriented to person and cooperative (1) Altered mental status Altered mental status type: unspecified Qualified Code(s): R41.82 - Altered mental status, unspecified
[2018-09-24] MEDS: DOCUSATE SODIUM 100 MG CAP PO PRN (19:27)
[2018-09-24] MEDS: DULOXETINE HCL 60 MG CAP PO SCH (20:47)
[2018-09-25] MEDS: ASPIRIN 81 MG ECTAB PO SCH (08:13)
[2018-09-25] MEDS: BENZONATATE 100 MG CAPSULE PO SCH ×3 (08:13→20:28)
[2018-09-25] MEDS: DULOXETINE HCL 30 MG CAP PO SCH (08:13)
[2018-09-25] MEDS: SIMVASTATIN 80 MG TAB PO SCH (08:13)
[2018-09-25] MEDS: CELECOXIB 100 MG CAP PO SCH (08:14)
[2018-09-25] MEDS: POTASSIUM CHLORIDE 10 MEQ TABCR PO SCH ×2 (08:14→20:30)
[2018-09-25] MEDS: CARBAMAZEPINE 200 MG TABCR PO SCH ×2 (08:14→20:29)
[2018-09-25] MEDS: FLUTICASONE/SALMETEROL 250/50 (ADVAIR) 14 PUFF/1 INHALER INH SCH ×2 (08:14→20:26)
[2018-09-25] MEDS: ALBUTEROL HFA 8 GM INHALER INH PRN ×2 (08:17→20:27)
[2018-09-25] MEDS: TRAMADOL HCL 50 MG TABLET PO PRN ×3 (08:48→20:33)
[2018-09-25] MEDS: NICOTINE 7 MG/24 HR TDSY TD PRN (08:49)
--- NOTE | 2018-09-25 13:15 | Hospitalist Progress Note ---
Date of Service September 25, 2018 Assessment & Plan (1) Altered mental status: Initially presented to due lethargy and altered mental status. No exact cause noted. CBC, TSH were both normal. CXR was neg for PNA. UA was negative for UTI. Head CT on 09/18 showed remote left MCA territory infarct, but no acute abnormalities. Seen by neurology who felt this was unlikely to be seizure or CVA. He does have many different types of medications on hand and recent depression, cannot fully r/o accidental vs. intentional overdose. Initially held all sedating medications. - Continue ASA - As of 09/24, he was at his baseline. (2) History of CVA (cerebrovascular accident): R-sided deficits at baseline from prior CVA. - Plan for SNF in [place] (3) Depression: Per report from sister, it has been mildly worse recently. - Continued home duloxetine & carbamazepine - Will need carbamazepine level checked around the end of September. - On 09/24, he reported being discouraged about slow placement, but reported no SI/HI. (4) Anxiety: As above with depression. (5) Seizure: No inpatient seizures and neurology felt EEG unneccesary in the hospital. - Continued home carbamazepine - Will need carbamazepine level checked around the end of September. (6) COPD (chronic obstructive pulmonary disease): No wheezing or trouble breathing while inpatient. - Continued home Advair - Albuterol PRN (7) Tobacco use disorder: Nicotine patch PRN (8) DVT prophylaxis: SCDs & frequent ambulation (as able) Subjective 63yo M w/ hx of CVA who presented with weakness. Today, he is doing very well. No major concerns. He is very comfortable and had no issues overnight. Was discouraged about some rejections from SNFs. Reports no fevers/chills, chest pain, shortness of breath, abdominal pain, nausea, or vomiting. Physical Exam Vital Signs (Past 24 Hours): Last Vital Signs Temp 36.3 C L 09/25/18 07:09 Pulse 66 09/25/18 07:09 Resp 20 09/25/18 07:09 BP 147/70 H 09/25/18 07:09 Pulse Ox 98 09/25/18 07:09 Constitutional: + cachectic and + frail appearing; no acute distress Eyes: + anicteric sclerae Neck: normal visual inspection and trachea midline Respiratory: normal respiratory effort, lungs clear to auscultation Cardiovascular: Rate/Rhythm: regular rate and regular rhythm Gastrointestinal (Abdomen): Inspection/Auscultation: abdomen not distended Percussion/Palpation: abdomen soft; abdomen nontender Musculoskeletal: Head/Neck/Chest: normocephalic and head atraumatic Skin: no rashes, warm and dry Neurologic: moves all extremities and awake Psychiatric: Orientation: alert, oriented to person and cooperative (1) Altered mental status Altered mental status type: unspecified Qualified Code(s): R41.82 - Altered mental status, unspecified
[2018-09-25] MEDS: POLYETHYLENE (MIRALAX) 17 GM PACK PO SCH (13:50)
[2018-09-25] MEDS: LINZESS 145 MCG PO SCH (13:51)
[2018-09-25] MEDS: DULOXETINE HCL 60 MG CAP PO SCH (20:29)
[2018-09-26] MEDS: FLUTICASONE/SALMETEROL 250/50 (ADVAIR) 14 PUFF/1 INHALER INH SCH (07:48)
[2018-09-26] MEDS: CELECOXIB 100 MG CAP PO SCH (07:49)
[2018-09-26] MEDS: POLYETHYLENE (MIRALAX) 17 GM PACK PO SCH (07:50)
[2018-09-26] MEDS: POTASSIUM CHLORIDE 10 MEQ TABCR PO SCH (07:50)
[2018-09-26] MEDS: ASPIRIN 81 MG ECTAB PO SCH (07:50)
[2018-09-26] MEDS: SIMVASTATIN 80 MG TAB PO SCH (07:51)
[2018-09-26] MEDS: BENZONATATE 100 MG CAPSULE PO SCH (07:51)
[2018-09-26] MEDS: ALBUTEROL HFA 8 GM INHALER INH PRN (07:52)
--- NOTE | 2018-09-26 07:55 | Discharge Summary ---
Date of Service September 26, 2018 Admission HPI Per Admitting Provider 63 y/o M who was brought to the ED by his family after being found with AMS at home. 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 This has left him with no use of his R UE and limited R LE use with some aphasia. Pt can understand conversation and participate in conversation, but does have limited vocabulary. He is A&O x3 at baseline. Pt also had an ME in 1987 as the result of cocaine use. Pt lives alone in an apartment in [place], with a "medical helper" who looks in on him regularly. He used to live with his mother, but she 5-6 years ago. He has two sisters who live in [place] who have tried to convince him to move to [place] for quite some time. They are in good contact with him and visit him here regularly. Pt was recently at [facility] x10 days for ambulation issues related to his R LE. He was d/c'd on 09/10 to home with N. Pt's sister and her had a planned visit for today. She states that she spoke with pt around 11:30p last night via phone regarding this visit and pt seemed to be in his usual state of health. He had no health concerns or other commentary that made her think anything was out of the ordinary. She does note that he mentioned that his depression was worse. Sister and her arrived around 8:30a today to find pt quite "groggy" and not as interactive as he usually would be. He does stay up late and so they thought he was just tired and would "come out of it". He was not moving as he usually would. His speech and communication was not like it usually would be. She states that there were many pills all over his table, but she states that pt does "play with them". "He is a former addict. I think they are just drawn to pills." When his mentation and interactions did not improve, they brought pt to the ED for further evaluation. 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 She states he goes through about 20 cigarettes a day, but only takes a few puffs from each and puts them out. As far as she is aware, pt has no current drug use. She states that all of the stopped after his CVA 22 yrs ago because he could not communicate effectively to obtain drugs or drive to meet dealers. Pt has several ulcerations from postural issues and his R leg brace. She states that his diet is "terrible" and that all he will eat regularly is jelly beans. She states that he has no known swallowing issues after his initial CVA and can eat and drink what he likes. He does wear an upper denture plate, but not a lower. Unable to obtain ROS given pt's current mentation. Sister states that she and their other sister are joint POA. She knows that if pt would not prolonged mechanical life support, feeding tubes, etc. She does think that pt would prefer to be DNR/DNI at baseline, however she would like to discuss with her sister before making a final determination on this status. She does state that if pt does not recover meaningful activity from this event, that he would want to be a DNR/DNI at that time. Sisters are currently in the process of arranging for pt to move to an AL facility in [place]. She states that pt has a lot of depression and really enjoyed his time at [facility] due to the interaction with others, activities, etc. She states that they have tried many times to convince him of this, but he had preferred to live alone after the passing of their mother. After being at [facility], she thinks he realized that he does want a more social environment. CT head was able to be completed in the ED, however pt was unable to cooperate for CTA. Family states that pt will go from periods of moving his L UE and LE and looking around the room with some eye contact to periods of lying still and not appearing to respond to them while they are in the ED. Principal Diagnosis Altered mental status of unknown etiology Discharge Exam Constitutional + frail appearing; no acute distress Eyes + anicteric sclerae Neck normal visual inspection and trachea midline Respiratory normal respiratory effort, lungs clear to auscultation Cardiovascular Rate/Rhythm: regular rate and regular rhythm Gastrointestinal (Abdomen) Inspection/Auscultation: abdomen not distended Percussion/Palpation: abdomen soft; abdomen nontender Musculoskeletal Head/Neck/Chest: normocephalic and head atraumatic Skin no rashes, warm and dry Neurologic moves all extremities and awake Psychiatric Orientation: alert, oriented to person and cooperative Discharge Data Allergies Allergy/AdvReac Type Severity Reaction Status Date / Time No Known Allergies Allergy Unknown Verified 09/18/18 11:56 Consultations 09/18/18 12:25 ED Decision to Admit Stat 09/18/18 14:42 Consult Case Management - Discharge Planning Routine Consult Neurology Routine 09/19/18 08:26 Consult Cardiology Routine Ordered Studies 09/18/18 10:04 CT head/brain wo con Stat Hospital Course (1) Altered mental status: Initially presented to due lethargy and altered mental status. No exact cause found. CBC, TSH were both normal. CXR was neg for PNA. UA was negative for UTI. Head CT on 09/18 showed remote left MCA territory infarct, but no acute abnormalities. Seen by neurology who felt this was unlikely to be seizure or CVA. He did have many different types of medications on hand and recent depression, cannot fully r/o accidental vs. intentional overdose. Initially held all sedating medications. - As of 09/24, he was at his baseline. Remained awake, alert, and pleasant >3 days prior to discharge. (2) History of CVA (cerebrovascular accident): R-sided deficits at baseline from prior CVA. - No further stroke-like symptoms or concerns prior to discharge. - Continued ASA and statin (3) Depression: Per report from sister, it has been mildly worse recently. - Continued home duloxetine & carbamazepine - Will need carbamazepine level checked around the end of September. - On 09/24, he reported being discouraged about slow placement, but reported no SI/HI. By 09/26, he was alert and pleasant, and happy to be getting discharged. (4) Anxiety: As above with depression. (5) Seizure: No inpatient seizures and neurology felt EEG unneccesary in the hospital. - Continued home carbamazepine - Will need carbamazepine level checked around the end of September. (6) COPD (chronic obstructive pulmonary disease): No wheezing or trouble breathing while inpatient. - Continued home Advair - Albuterol PRN (7) Tobacco use disorder: Nicotine patch PRN Total Time Total Time Spent Total Time Spent (In Minutes): 45 Total Time Includes: Examination of the Patient, Discharge Planning and Medication Reconciliation Discharge Plan Discharge Items Reason For Visit: CVA Follow-up/Referrals: Narinder Gonzalez MD [Primary Care Provider] - Addtl Provider Instructions: Prescriptions: No Action fluticasone propion-salmeterol [Advair Diskus] 250-50 mcg/dose Blister With Device 1 inh INHALATION BID RF: 0 aspirin 325 mg Tablet,Delayed Release (Dr/Ec) 325 mg PO DAILY RF: 0 celecoxib 100 mg capsule 100 mg PO DAILY RF: 0 docusate sodium 100 mg Tablet 100 mg PO BID PRN (Reason: Constipation) RF: 0 trazodone 50 mg tablet 50 - 100 mg PO HS PRN (Reason: Insomnia) RF: 0 doxepin 25 mg capsule 25 mg PO HS RF: 0 simvastatin 80 mg tablet 80 mg PO DAILY RF: 0 tramadol 50 mg tablet 50 mg PO Q6 PRN (Reason: Pain) RF: 0 albuterol sulfate [Ventolin HFA] 90 mcg/actuation HFA aerosol inhaler 1 - 2 puff Inhalation Q4 PRN (Reason: Shortness Of Breath Or Wheezing) RF: 0 duloxetine 30 mg capsule,delayed release(DR/EC) 30 mg PO QAM RF: 0 duloxetine 60 mg capsule,delayed release(DR/EC) 60 mg PO QPM RF: 0 Linzess 145 mcg capsule 145 mg PO QAM RF: 0 lorazepam 0.5 mg tablet 0.5 - 1 mg PO DAILY PRN (Reason: Anxiety) RF: 0 carbamazepine [Tegretol XR] 100 mg tablet extended release 12 hr 100 mg PO BID RF: 0 baclofen 10 mg tablet 10 mg PO TID PRN (Reason: Muscle Spasm) RF: 0 potassium chloride 10 mEq tablet,ER particles/crystals 10 meq PO BID RF: 0 Krames/Other Patient Handouts: Prediabetes, Diabetes Meal Planning Admission Data Admit Date/Time: 09/18/18 13:25 Attending Provider: Kanu Linares Admit Provider: Jenny Guajardo Primary Care Provider: Narinder Gonzalez Other Providers: Ziggy Mandujano ; Calin Montoya ; Kanu Linares Service: Medical
[2018-09-26] MEDS: DULOXETINE HCL 30 MG CAP PO SCH (08:19)
[2018-09-26] MEDS: TRAMADOL HCL 50 MG TABLET PO PRN (08:19)
[2018-09-26] MEDS: CARBAMAZEPINE 200 MG TABCR PO SCH (08:19)
--- NOTE | 2018-10-01 09:34 | Coding Query ---
CODING QUERY To promote full compliance with coding requirements relating to patient care, provider participation is requested in all cases of civil service clerk uncertainty. Please assist us with the question(s) below: Coding Question(s): There is documentation possible TIA on Progress Notes 09/19/18 through 09/23/18, with documentation as well of less likely TIA on those Progress Notes, and there is no further mention of possible TIA. Please clarify below, in your clinical opinion, regarding TIA. ( x ) TIA was ruled-out ( ) Possible TIA Physician's Response(s): Thank you Eneida Anderson Principal Diagnosis: "�that condition established after study, to be chiefly responsible for occasioning the admission of the patient to the hospital for care." Co-Existing Principal Diagnosis: "�when two or more diagnoses equally meet the criteria for principal diagnosis as determined by the circumstances of admission, diagnostic work up, and/or therapy provided, and the Alphabetic Index, Tabular List, or another coding guideline does not provide sequencing direction, any one of the diagnoses may be sequenced first." "When the physician has documented what appears to be a current diagnosis in the body of the record, but has not included the diagnosis in the final diagnostic statement, the physician should be asked whether the diagnosis should be added." (Source Coding [facility] 2 QTR90. p3-4) KASHIF
== END 2018-09-26 10:36 | DRG 948 ==
LOC: ED 09:46 → SUATTDRO 13:25 → 2S 13:25 → 4E 09-21 15:02